=== PATIENT | male | born 1955 | race Caucasian/White ===

== ENCOUNTER 2017-07-24 10:00 | Outpatient (CLI) | payer BC ==
[2017-07-24] MEDS ORDERED: ISOVUE-370 76%-LOCM 1 ML ONE (11:38)
== END 2017-07-24 10:01 | disposition home or self-care (01) ==
LOC: BICCT 10:00
PROVIDERS: ATTEND Nurse Practitioner Family
DX: E87.1 Hypo-osmolality and hyponatremia (principal); E80.6 Other disorders of bilirubin metabolism; E78.2 Mixed hyperlipidemia; E83.52 Hypercalcemia; R97.20 Elevated prostate specific antigen [PSA]; R25.1 Tremor, unspecified; R74.0 Nonspecific elevation of levels of transaminase and lactic acid dehydrogenase [LDH]; I10 Essential (primary) hypertension; R73.09 Other abnormal glucose; J44.9 Chronic obstructive pulmonary disease, unspecified; I70.90 Unspecified atherosclerosis; K63.89 Other specified diseases of intestine; Z90.49 Acquired absence of other specified parts of digestive tract; Z86.19 Personal history of other infectious and parasitic diseases
CPT/HCPCS: 71260; 74177

== ENCOUNTER 2017-08-18 10:30 | Outpatient (CLI) | payer OTHER | END 2017-08-18 10:31 | disposition home or self-care (01) | LOC: BICRAD 10:30 | PROVIDERS: ATTEND Internal Medicine | DX: Z02.71 Encounter for disability determination (principal); M47.896 Other spondylosis, lumbar region; M41.86 Other forms of scoliosis, lumbar region | CPT/HCPCS: 72100 ==

== ENCOUNTER 2018-01-23 06:57 | Outpatient (CLI) | payer BC ==
--- NOTE | 2018-01-23 08:15 | ULT ---
HEPATIC DOPPLER ULTRSOUND: HISTORY: Abnormal LFTs. COMPARISON: None. TECHNIQUE: Vaughn scale, color flow, Doppler imaging, and spectral waveform analysis was performed of the liver. FINDINGS: Mild increased echogenicity of the liver may be due to hepatic steatosis or hepatocellular disease. Limited evaluation for hepatic masses and intrahepatic biliary dilatation. Right hepatic lobe measur es 13.4 cm. Gallbladder is surgically absent. Common bile duct diameter is 0.3 cm. The spleen has a normal echotexture measuring 9.8 cm in maximum dimension. Visualized IVC is unremarkable. Pancreas is obscured by bowel gas. HEPATIC DOPPLER: There is patency and normal direction of flow in the main portal vein, right portal vein, left portal vein, right hepatic vein, left hepatic lobe, middle hepatic vein, and the hepatic artery. Splenic v ein and artery are also patent. IMPRESSION: 1. Normal hepatic Doppler. 2. Mild increased echogenicity of the liver likely due to hepatic steatosis or hepatocellular diseas e. Correlation is made with a CT from 07/24/2017 favors hepatocellular disease. POS: [facility]
== END 2018-01-23 06:58 | disposition home or self-care (01) ==
LOC: BICULT 06:57
PROVIDERS: ATTEND Internal Medicine Gastroenterology
DX: Z12.11 Encounter for screening for malignant neoplasm of colon (principal); R94.5 Abnormal results of liver function studies; R93.2 Abnormal findings on diagnostic imaging of liver and biliary tract
CPT/HCPCS: 76705

== ENCOUNTER 2018-02-11 07:16 | Day surgery (SDC) | payer BC ==
[2018-02-11 07:31] LABS: Hemoglobin 14.3 g/dL (14.0-18.0); Mean Corpuscular HGB CONC 32.2 g/dL (32.0-36.0); Mean Corpuscular Volume 93.3 fL (78.0-98.0); Mean Platelet Volume 6.7 fL (7.4-10.4); Platelet Count 172 thou/uL (130-400); RBC Distribution Width 12.4 % (11.5-14.5); Red Blood Cell (RBC) Count 4.78 mill/uL (4.70-6.10); White Blood Cell (WBC) Count 5.4 thou/uL (4.8-10.8)
[2018-02-11 07:49] LABS: PTT 27.5 SEC (22.9-36.1); Prothrombin Time 13.4 SEC (12.0-14.7)
[2018-02-11 08:21] VITALS: BMI 22.8
[2018-02-11] MEDS ORDERED: Sodium Bicarbonate 2.5 MEQ/5 ML VIAL ONE (08:38)
[2018-02-11] MEDS ORDERED: Midazolam HCl 2 mg/2 ml Vial ONE (08:38)
[2018-02-11] MEDS ORDERED: Fentanyl 100 MCG/2 ML VIAL ONE (08:38)
[2018-02-11] MEDS ORDERED: Lidocaine 1% PF 5 ML VIAL ONE (08:38)
[2018-02-11 09:58] VITALS: BP 157/87; TEMP 98.1
--- NOTE | 2018-02-11 11:19 | ULT ---
ULTRASOUND GUIDED HEPATIC BIOPSY: INDICATIONS: Abnormal liver function enzymes. PROCEDURE IN DETAIL: Informed consent was obtained. The patient was escorted to the procedural suite and placed into a jones pine position. The ventral abdomen was prepped and draped in a standard, sterile fashion, and a wind ow approach to the substernal region, to the left hepatic lobe, was selected. Conscious sedation was provided by the radiology nurse, Luiza Posada, and the patient was monitored accordingly, in stabl e condition throughout the duration of the exam. Conscious sedation was provided for a period of 45 minutes. After a small skin incision was made, an 18 gauge biopsy needle was advanced to the leading edge of t he left hepatic lobe. A single core specimen was acquired, under real-time sonography, with imaging stored for documentation. There were no procedural complications. The needle was removed. The spec imen was placed in a sealed formalin container, which was sent to pathology for further analysis. Po st procedural imaging revealed no evidence of complication. The patient was subsequently monitored, in stable condition, in radiology holding, prior to discharge in stable condition with a family member. IMPRESSION: Technically successful ultrasound guided hepatic biopsy. Pathology results are pending. POS: [facility]
== END 2018-02-11 10:45 | disposition home or self-care (01) ==
LOC: ULT 07:16
PROVIDERS: ATTEND Internal Medicine Gastroenterology
PROC: 0FB23ZX Excision of Left Lobe Liver, Percutaneous Approach, Diagnostic (ICD-10-PCS; principal; 2018-02-11)
DX: K73.9 Chronic hepatitis, unspecified (principal); K74.0 Hepatic fibrosis; I10 Essential (primary) hypertension; Z79.899 Other long term (current) drug therapy
CPT/HCPCS: 36415; 47000; 76942; 85027; 85610; 85730; 88307; 88313; J2001; J2250; J3010

== ENCOUNTER 2018-04-02 11:46 | Outpatient (CLI) | payer BC ==
--- NOTE | 2018-04-02 16:10 | RAD ---
CERVICAL SPINE THREE VIEWS: 04/02/18 HISTORY: Neck pain. FINDINGS: There is 0.6 cm spondylolisthesis at the C4-5 level. Disc space narrowing is pronounced at the C5-6 l evel with 0.4 cm retrolisthesis. Prominent osteophytosis. Cervicothoracic junction is intact. No acut e fracture or dislocation. Calcification within the arterial structures. IMPRESSION: Prominent degenerative changes cervical spine with significant spondylolisthesis at the C4-5 level. Atherosclerosis. POS: [facility]
--- NOTE | 2018-04-02 16:12 | RAD ---
THREE VIEW RIGHT HAND: 04/02/18 INDICATION: Right hand pain, edema. FINDINGS: There is diffuse joint space narrowing, subchondral sclerosis and cyst formation and osteophytosis of the right hand with preferential involvement of the first and second rays. No acute osseous abnormal ity. IMPRESSION: Findings most consistent with osteoarthritis preferentially involving the first and second rays of th e right hand. No acute fracture. POS: [facility]
== END 2018-04-02 11:47 | disposition home or self-care (01) ==
LOC: BICRAD 11:46
PROVIDERS: ATTEND Nurse Practitioner Family
DX: M25.541 Pain in joints of right hand (principal); M47.812 Spondylosis without myelopathy or radiculopathy, cervical region; M43.12 Spondylolisthesis, cervical region; I70.90 Unspecified atherosclerosis
CPT/HCPCS: 72040

== ENCOUNTER 2019-09-01 16:46 | Inpatient (IN) | payer BC, MEDICARE ==
[2019-09-01] MEDS ORDERED: Lorazepam 2 MG/ML VIAL ONE ×3 (17:21→18:08)
[2019-09-01 17:54] LABS: #Basophils 0.1 thou/uL (0.0-0.2); #Lymphocytes 1.8 thou/uL (1.20-3.40); #Monocytes 0.9 thou/uL (0.11-0.59); #Neutrophils 8.7 thou/uL (1.40-6.50); %Basophils 0.6 % (0.0-1.0); %Eosinophils 0.1 % (0.0-10.0); %Lymphocytes 15.9 % (21.0-51.0); %Monocytes 7.4 % (0.0-10.0); Hemoglobin 14.6 g/dL (14.0-18.0); Mean Corpuscular HGB CONC 32.9 g/dL (32.0-36.0); Mean Corpuscular Hemoglobin 30.6 pg (27.0-31.0); Mean Platelet Volume 8.6 fL (7.4-10.4); Platelet Count 107 thou/uL (130-400); RBC Distribution Width 12.5 % (11.5-14.5); Red Blood Cell (RBC) Count 4.76 mill/uL (4.70-6.10); White Blood Cell (WBC) Count 11.5 thou/uL (4.8-10.8)
[2019-09-01 18:08] LABS: ALT (SGPT) 40 U/L (8-55); AST (SGOT) 70 U/L (5-34); Albumin 4.5 g/dL (3.4-4.8); Alkaline Phosphatase 75 U/L (40-110); Anion Gap 21 mmol/L (10-20); BUN (Urea Nitrogen) 30 mg/dL (8.4-25.7); Bilirubin, Total 5.4 mg/dL (0.2-1.2); CK (CPK) 1794 U/L (30-200); Calc. Creatinine Clearance 0 mL/min (70-130); Calcium 10.5 mg/dL (7.8-10.44); Carbon Dioxide 24 mmol/L (23-31); Chloride 88 mmol/L (98-107); Estimated GFR-MDRD 58; Globulin 3.1 g/dL (2.4-3.5); Glucose 105 mg/dL (80-115); Magnesium 1.2 mg/dL (1.6-2.6); Potassium 3.2 mmol/L (3.5-5.1); Protein, Total 7.6 g/dL (5.8-8.1); Sodium 130 mmol/L (136-145)
[2019-09-01] MEDS ORDERED: Magnesium 2 GM/50 ML BAG (IN WATER) ONE (18:16)
--- NOTE | 2019-09-01 18:32 | RAD ---
RIGHT HIP THREE VIEWS: 09/01/19 HISTORY: Hip pain. Some motion artifact present. There is no signs of fracture or dislocation. IMPRESSION: No evidence of acute injury. POS: [facility]
--- NOTE | 2019-09-01 18:33 | RAD ---
PORTABLE CHEST: 09/01/19 HISTORY: Altered mental status. Syncope, seizure. COMPARISON: 01/09/14 study. Heart size and mediastinum are within normal limits. The lungs are clear of any infiltrative process. IMPRESSION: No active intrathoracic disease. POS: [facility]
[2019-09-01] MEDS ORDERED: Multivitamins, Adult 10 ML, Thiamine HCl 100 MG, Folic Acid 1 MG in Dextrose 5 %-0.45 %... IV ONE (19:00)
--- NOTE | 2019-09-01 19:43 | CT ---
CT OF BRAIN PERFORMED WITHOUT CONTRAST ENHANCEMENT: 09/01/19 HISTORY: Falls with seizure-like activity. COMPARISON: A 01/09/14 exam. There is generalized ventricular and sulcal prominence. There is decreased attenuation of the periven tricular white suggesting some chronic white matter change. There are no signs of intracerebral hemo rrhage or extra-axial fluid collections. Mastoid air cells are clear. There is mucosal disease in bot h maxillary sinuses. IMPRESSION: No acute intracranial abnormalities. POS: [facility]
--- NOTE | 2019-09-01 20:05 | CT ---
CT OF CERVICAL SPINE PERFORMED WITHOUT CONTRAST ENHANCEMENT: 09/01/19 HISTORY: Neck pain status post fall. There are marked arthritic changes of the spine. There is severe degenerative changes at the C3-4 and C5-6 levels. There is an anterolisthesis of approximately 4 mm of C4 on C5 and a similar retrolisth esis of C5 on C6. The facets show marked degenerative change. At the C3-4 level, there is moderately severe bilateral foraminal stenosis. Marked bilateral foraminal narrowing at C4-5 and C5-6. The galvan es at C5-6 are more pronounced on the left side. Posterior osteophytic change at this level causes a mild degree of canal narrowing. There is no CT evidence for fracture. IMPRESSION: No CT evidence of fracture of the cervical spine. POS: [facility]
[2019-09-01 20:38] LABS: Lactic Acid 1.5 mmol/L (0.5-2.2)
[2019-09-01] MEDS ORDERED: Magnesium Sulfate 3 GM in Sodium Chloride 0.9% 100 ML IVPB SCH ×2 (21:00→23:59)
[2019-09-01 23:06] VITALS: BMI 21.6
[2019-09-01] MEDS: Lorazepam 2 MG/ML VIAL SLOW IVP PRN (23:23)
[2019-09-01] MEDS: Sodium Chloride 0.9% 1,000 ML IV SCH (23:30)
[2019-09-02] MEDS: Lorazepam 2 MG/ML VIAL SLOW IVP PRN ×4 (00:07→17:10)
[2019-09-02] MEDS: Potassium Chloride 10 MEQ in Premix Bag 1 BAG IVPB SCH ×3 (00:18→03:19)
--- NOTE | 2019-09-02 01:00 | HP ---
CHIEF COMPLAINT: Fall and ? seizures. HISTORY OF PRESENT ILLNESS: Mr. Richmond is a 64-year-old male who was brought to the emergency room department by EMS after falls, which has been worsening as well as seizure-like activity. As per records, patient has been intermittently awake and becomes oriented x1. He initially complained of right hip pain as well as headache. He also complained of a recent hyphema to the right eye, which he woke up with. He denied any visual problems. The patient was placed in a C-collar by EMS. The patient has had tremors to the upper and lower extremities. 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 He is currently on blood pressure medications and cholesterol medications. He is not on any seizure medications. In the emergency room, patient received a total 4 mg of Ativan. Currently, the patient is sedated, unable to give any history. PAST MEDICAL HISTORY: 1. Hypertension. 2. Hyperlipidemia. 3. Seizures. 4. Alcohol dependence. PAST SURGICAL HISTORY: Cholecystectomy. SOCIAL HISTORY: He drinks alcohol every day, more than 5 drinks a day. No smoking history. FAMILY HISTORY: Reviewed and noncontributory. HOME MEDICATIONS: Please see home medication reconciliation form for updated medications. ALLERGIES: NO KNOWN ALLERGIES. REVIEW OF SYSTEMS: Unable to obtain. Currently, patient is sedated. PHYSICAL EXAMINATION: GENERAL: The patient is awake. HEENT: Has some subconjunctival hemorrhage. NECK: In C-collar. CHEST: Fair bilateral air entry. HEART: S1, S2. Regular. ABDOMEN: Soft. Bowel sounds present. NEUROLOGIC: The patient is sedated, received Ativan. PSYCHIATRIC: Unable to assess. EXTREMITIES: Multiple skin tears and contusions scattered all over the body. VITAL SIGNS: Blood pressure 145/80, respiratory rate is 20, oxygen saturation is 100% on room air, temperature 98.8. LABORATORY DATA: CT of the brain, no acute findings. Chest x-ray, no acute findings. Hip x-ray, no acute findings. Alcohol level less than 10. Magnesium was low at 1.2. Sodium is low at 130. Anion gap is elevated at 21. CPK is elevated at 1794. Bilirubin is elevated at 5.4. Lactic acid elevated at 3. Platelets low at 107. ASSESSMENT AND PLAN: 1. Acute encephalopathy? postictal. 2. Fall, recurrent. 3. Alcohol dependence with withdrawal. 4. Hypomagnesemia. 5. Hypokalemia. 6. Hyponatremia. 7. Lactic acidosis. 8. Rhabdomyolysis. 9. Seizures. PLAN: 1. Admit to IMCU. 2. Frequent neuro checks. 3. Fall precautions. 4. Seizure precautions. 5. Use benzodiazepine as needed for alcohol withdrawal/seizures. 6. Replace magnesium. 7. Replace potassium. 8. IV fluids. 9. Monitor kidney function and urine output. 10. Keep patient n.p.o. for now, reassess in a.m. 11. Reconcile home medications. 12. DVT prophylaxis as appropriate. 13. Expected length of stay, 2 midnights or more. Job ID: [id number]
[2019-09-02] MEDS: Sodium Chloride 0.9% 1,000 ML IV SCH ×3 (07:55→23:55)
[2019-09-02] MEDS ORDERED: Potassium Chloride 20 MEQ TAB PO SCH (10:30)
[2019-09-02 11:27] LABS: Band 14 % (5-11); Hemoglobin 12.5 g/dL (14.0-18.0); Lymphocytes 9 % (21-51); MDiff Complete? YES; Mean Corpuscular HGB CONC 32.8 g/dL (32.0-36.0); Mean Corpuscular Hemoglobin 30.8 pg (27.0-31.0); Mean Platelet Volume 8.3 fL (7.4-10.4); Monocytes 7 % (0-10); Neutrophil 53 % (42-75); Platelet Count 85 thou/uL (130-400); Platelet Morphology Comment Appears Decreased; Polychromasia SLIGHT = 2-3 cells (100X) (0-2/hpf); RBC Distribution Width 12.5 % (11.5-14.5); Reactive Lymphocytes 17 % (0-10); Red Blood Cell (RBC) Count 4.05 mill/uL (4.70-6.10); White Blood Cell (WBC) Count 5.1 thou/uL (4.8-10.8)
[2019-09-02 11:39] LABS: Anion Gap 12 mmol/L (10-20); BUN (Urea Nitrogen) 16 mg/dL (8.4-25.7); Calc. Creatinine Clearance 90 mL/min (70-130); Calcium 8.2 mg/dL (7.8-10.44); Carbon Dioxide 28 mmol/L (23-31); Chloride 95 mmol/L (98-107); Estimated GFR-MDRD Greater than 90; Glucose 87 mg/dL (80-115); Potassium 2.6 mmol/L (3.5-5.1); Sodium 132 mmol/L (136-145)
[2019-09-02] MEDS ORDERED: Thiamine HCl 200 MG/2 ML VIAL IM SCH (12:15)
[2019-09-02] MEDS ORDERED: Diazepam 5 MG TAB PO SCH (12:15)
[2019-09-02] MEDS ORDERED: Diazepam 5 MG TAB PO PRN (12:15)
[2019-09-02] MEDS ORDERED: Magnesium 2 GM/50 ML 2 GM in Premix Bag 1 BAG IVPB PRN (12:22)
[2019-09-02] MEDS ORDERED: Magnesium Oxide 400 MG TAB PO PRN ×2 (12:22)
[2019-09-02] MEDS ORDERED: Potassium Phosphate 9 MMOL in Sodium Chloride 0.9% 100 ML IVPB PRN (12:22)
[2019-09-02] MEDS ORDERED: PHOS-NAK 1 PKT PACK PO PRN ×2 (12:22)
[2019-09-02] MEDS ORDERED: Potassium Chloride 40 MEQ in Sodium Chloride 0.9% 250 ML 250 ML IVPB PRN (12:22)
[2019-09-02] MEDS ORDERED: CCU ELECTROLYTE REPLACEMENT PROTOCOL FS PRN (12:22)
[2019-09-02] MEDS ORDERED: Potassium Chloride 20 MEQ TAB PO PRN (12:22)
[2019-09-02] MEDS ORDERED: Potassium Phosphate 12 MMOL in Sodium Chloride 0.9% 250 ML 250 ML IV PRN (12:22)
[2019-09-02] MEDS ORDERED: Potassium Phosphate 15 MMOL in Sodium Chloride 0.9% 250 ML 250 ML IV PRN (12:22)
[2019-09-02] MEDS ORDERED: levETIRAcetam 2,000 MG in Sodium Chloride 0.9% 100 ML IVPB SCH (12:30)
--- NOTE | 2019-09-02 13:43 | CON ---
NEUROLOGY CONSULTATION DATE OF CONSULTATION: 09/02/2019 REASON FOR CONSULTATION: Seizures. HISTORY OF PRESENT ILLNESS: Mr. Richmond is a 64-year-old male who is consulted for seizure activity. The patient is extremely lethargic and the history is obtained from the patient's . Per , he was admitted to the hospital with West Nile virus 2011 and then a year after he had his first seizure, which was characterized by staring off in space with stiffening. According to the , the seizures were sporadic, so he never took any medicines. This year he had 5 episodes in total, which are characterized by confusion and not feeling well followed by stiffening and confusion. He had one in his doctor's office a couple of months ago and neurology workup was suggested. Per he had 5 seizures this year. Yesterday he was not feeling well and then he fell down and had a seizure. He was brought to the emergency room by the EMS after repeated falls and the noted seizure-like activity. Per he also had headache and tremors of the upper and lower extremities. He does have a history of alcohol abuse and according to the , he drinks more than 5 beers a day. In the emergency room he received 4 mg of Ativan and transferred to CCU for further monitoring and management of seizures. REVIEW OF SYSTEMS: Per positive for falls, headache and seizures. PAST MEDICAL HISTORY: Hypertension, hyperlipidemia, seizures, alcohol abuse. PAST SURGICAL HISTORY: Status post cholecystectomy. SOCIAL HISTORY: , lives with his . Drinks more than 5 drinks a day. No smoking or illegal drug use. FAMILY HISTORY: No family history of epilepsy. HOME MEDICATION: He does not take any seizure medications at home. ALLERGIES: NO KNOWN DRUG ALLERGIES. PHYSICAL EXAMINATION: HEENT: Blood pressure 140/90, pulse 80, respiratory rate 18, temperature 98. CVS: Regular rate and rhythm. CHEST: Clear. ABDOMEN: Soft. NECK: No carotid bruit. NEUROLOGICAL: Mental status: The patient is extremely somnolent and sedated. He does not open eyes or follow commands. Cranial nerves; pupils equal and reactive to light. Face symmetric. Tongue midline. Corneals positive. Cough positive. Motor, muscle tone and bulk are normal. Moving all 4 extremities equally and symmetrically. Sensory: Withdraws to nailbed pressure bilaterally. Reflexes symmetric bilaterally. Gait deferred due to patient's safety reasons. DATA REVIEWED: I reviewed the CT scan, which did not reveal any acute intracranial pathology. Chest x-ray was unremarkable. Alcohol level less than 10. He does have a metabolic electrolyte abnormalities including hypomagnesemia 1.2, hyponatremia 130, anion gap elevated at 21, CPKs 17.4 and hypokalemia and platelets of 107. ASSESSMENT AND PLAN: 1. Mr. Jose Richmond is consulted by Neurology for altered mental status and seizure like activity. He does have history of seizures and never been treated with an anticonvulsant. There is also a history of alcohol dependence. Load with Keppra 2 g IV now. 2. Start on Keppra maintenance dose 750 mg IV q.12 1st dose tonight. 3. Observe seizure precautions. 4. Ativan 2 mg IV for seizure greater than 2 minutes. 5. Observe seizure precautions. 6. Observe fall precautions. 7. [facility] protocol for alcohol for alcohol withdrawal. 8. Correct electrolyte abnormalities. 9.Continue home medications. Continue medical management per primary team. 10.Electroencephalogram ongoing. We will follow up on the results. 11.Recommend MRI of the brain to rule out intracranial lesion. We will continue to follow. Thank you for the consult. Plan discussed in detail with the and the nursing staff. Job ID: [id number] [facility]
--- NOTE | 2019-09-02 16:05 | EEG ---
Referring Physician: Aly AMANDA EEG # [id number] TEST TYPE: EXTENDED CONTINUOUS VIDEO EEG RECORDING REPORT: This EEG was performed using 24 channel [employer] video digital EEG machine with 24 disc electrodes. This was an extended 2 hour 6 minutes of inpatient video EEG recording. Digital analysis of the EEG was done for spike and seizure detection which revealed no abnormalities. BACKGROUND: The posterior background rhythm was not observed. Low amplitude EEG with excessive beta activity seen in the background. HYPERVENTILATION: Not performed. PHOTIC STIMULATION: No significant response seen with photic stimulation. SLEEP: Drowsiness and sleep are observed. EEG DIAGNOSIS: 1.) Intermittent irregular theta activity with superimposed beta. 2.) Absence of posterior background rhythm. CLINICAL INTERPRETATION: THIS EEG IS CONSISTENT WITH MODERATE GENERALIZED NONSPECIFIC CEREBRAL DYSFUNCTION. NO ICTAL OR INTERICTAL EPILEPTIFORM ABNORMALITIES SEEN DURING THE RECORDING. Maintenance Supervisor 2Nd Shift: [employer]: EEG.MARTHA SALAS
[2019-09-02] MEDS ORDERED: Haloperidol Lactate 5 MG/ML VIAL SLOW IVP PRN (17:35)
--- NOTE | 2019-09-02 17:39 | PDOC.HOSPP ---
- Subjective Encounter Date: 09/02/19 Subjective: The patient is confused and agitated. Multiple seizure like activities has been reported. - Objective Vital Signs & Weight: Vital Signs (12 hours) Temp Pulse Ox 09/02/19 15:56 96.0 F L 09/02/19 11:59 97.7 F 09/02/19 08:00 98 09/02/19 07:17 97.5 F L Weight Admit Weight 142 lb 4 oz Weight 142 lb 4 oz Most Recent Monitor Data Heart Rate from ECG 71 NIBP 166/88 NIBP BP-Mean 114 Respiration from ECG 15 SpO2 96 I&O: 09/01/19 09/02/19 09/03/19 06:59 06:59 06:59 Intake Total 1300 Output Total 375 Balance 925 Result Diagrams: 09/02/19 10:37 09/02/19 10:37 Hospitalist ROS - Medication Medications: Active Medications Generic Name Dose Route Start Last Admin Trade Name Freq PRN Reason Stop Dose Admin Sodium Chloride 1,000 mls @ 125 mls/hr 09/01/19 20:45 09/02/19 07:55 Normal Saline 0.9% IV 1,000 mls .Q8H IONA Administration Potassium Chloride 40 meq/ 270 mls @ 135 mls/hr 09/02/19 12:22 09/02/19 13:08 Sodium Chloride IVPB 270 mls ASDIR PRN Administration FOR SERUM K+ 2.5 - 3.5 Lorazepam 2 mg 09/01/19 20:26 09/02/19 17:10 Ativan SLOW IVP 2 mg Q15MIN PRN Administration Seizures Sodium Chloride 10 ml 09/01/19 21:00 09/02/19 07:55 Flush - Normal Saline IVF 10 ml Q12HR IONA Administration - Exam General Appearance: awake alert ENT: normocephalic atraumatic Neck: supple, no JVD Heart: RRR Respiratory: normal chest expansion, no tachypnea Gastrointestinal: soft, non-tender Extremities: no cyanosis Neurological: cranial nerve grossly intact, no weakness Hosp A/P (1) Seizures Code(s): R56.9 - UNSPECIFIED CONVULSIONS Status: Acute (2) Hypokalemia Code(s): E87.6 - HYPOKALEMIA Status: Acute (3) Alcohol withdrawal Code(s): F10.239 - ALCOHOL DEPENDENCE WITH WITHDRAWAL, UNSPECIFIED Status: Acute (4) Agitation Status: Acute (5) HTN (hypertension) Code(s): I10 - ESSENTIAL (PRIMARY) HYPERTENSION Status: Acute (6) Hypomagnesemia Code(s): E83.42 - HYPOMAGNESEMIA Status: Acute (7) Hyponatremia Code(s): E87.1 - HYPO-OSMOLALITY AND HYPONATREMIA Status: Acute - Plan Keppra started for suspected seizures. Haldol for combativeness and agitation. ASE alcohol withdrwal protocol with Ativan PRN. Replace electrolytes per ICU protocol.
[2019-09-02 19:47] LABS: Potassium 2.8 mmol/L (3.5-5.1)
[2019-09-02] MEDS: Potassium Chloride 40 MEQ in Premix Bag 1 BAG IVPB PRN (20:15)
[2019-09-02] MEDS ORDERED: Prevnar 13-Val Conj/PF 0.5 ML SYRINGE IM ONE (21:00)
[2019-09-02] MEDS ORDERED: Multivitamins, Adult 10 ML, Folic Acid 1 MG, Thiamine HCl 100 MG in Dextrose 5 %-0.45 %... IV SCH (21:00)
[2019-09-03] MEDS ORDERED: Diazepam 5 MG TAB PO PRN (04:00)
[2019-09-03 04:21] LABS: Band 8 % (5-11); Hemoglobin 12.2 g/dL (14.0-18.0); Lymphocytes 26 % (21-51); MDiff Complete? YES; Mean Corpuscular HGB CONC 32.5 g/dL (32.0-36.0); Mean Corpuscular Hemoglobin 30.5 pg (27.0-31.0); Mean Platelet Volume 8.6 fL (7.4-10.4); Monocytes 9 % (0-10); Neutrophil 57 % (42-75); Platelet Count 75 thou/uL (130-400); Platelet Morphology Comment Appears Decreased; RBC Distribution Width 12.4 % (11.5-14.5); Red Blood Cell (RBC) Count 3.99 mill/uL (4.70-6.10); White Blood Cell (WBC) Count 4.4 thou/uL (4.8-10.8)
[2019-09-03 04:35] LABS: Anion Gap 12 mmol/L (10-20); BUN (Urea Nitrogen) 7 mg/dL (8.4-25.7); Calc. Creatinine Clearance 130 mL/min (70-130); Calcium 6.9 mg/dL (7.8-10.44); Carbon Dioxide 23 mmol/L (23-31); Chloride 99 mmol/L (98-107); Estimated GFR-MDRD Greater than 90; Glucose 98 mg/dL (80-115); Potassium 2.6 mmol/L (3.5-5.1); Sodium 131 mmol/L (136-145)
[2019-09-03] MEDS: Potassium Chloride 40 MEQ in Premix Bag 1 BAG IVPB PRN (04:46)
[2019-09-03] MEDS ORDERED: Magnesium Oxide 400 MG TAB PO SCH (09:00)
[2019-09-03] MEDS: Folic Acid 1 MG TAB PO SCH (09:32)
[2019-09-03] MEDS: Multivitamin W/ Minerals 1 TAB PO SCH (09:32)
[2019-09-03] MEDS: Sodium Chloride 0.9% 1,000 ML IV SCH (09:32)
[2019-09-03] MEDS: Thiamine 100 MG TAB PO SCH (09:32)
[2019-09-03 09:39] LABS: Potassium 1.7 mmol/L (3.5-5.1)
[2019-09-03 10:17] LABS: Phosphorus 1.3 mg/dL (2.3-4.7)
[2019-09-03] MEDS ORDERED: DC Electrolyte Protocol FS ONE (10:17)
[2019-09-03] MEDS ORDERED: Lorazepam 1 MG TAB PO PRN (10:21)
[2019-09-03] MEDS ORDERED: Potassium Phosphate 30 MMOL, Admixture Fee 1 EACH in Sodium Chloride 0.9% 500 ML IVPB SCH (10:30)
[2019-09-03] MEDS: NS 0.9% w/ 20 MEQ KCL 1,000 ML/1,000 ML BAG IV SCH ×2 (11:10→20:00)
--- NOTE | 2019-09-03 11:44 | PDOC.HOSPP ---
- Subjective Encounter Date: 09/02/19 Subjective: NEUROLOGY PROGRESS NOTE Patient is alert, awake and following commands appropriately. - Objective Vital Signs & Weight: Vital Signs (12 hours) Temp BP Pulse Ox 09/03/19 11:11 96.6 F L 09/03/19 07:50 100 09/03/19 07:31 151/99 H 09/03/19 07:23 96.4 F L 09/03/19 04:00 97.2 F L 09/03/19 00:00 97.7 F 158/89 H Weight Admit Weight 142 lb 4 oz Weight 142 lb 4 oz Most Recent Monitor Data Heart Rate from ECG 60 NIBP 174/90 NIBP BP-Mean 118 Respiration from ECG 11 SpO2 98 I&O: 09/02/19 09/03/19 09/04/19 06:59 06:59 06:59 Intake Total 1300 3984 Output Total 375 1325 325 Balance 925 2659 325 Result Diagrams: 09/03/19 03:09 09/03/19 10:02 Radiology Reviewed by me: Yes EKG Reviewed by me: Yes Hospitalist ROS - Review of Systems Constitutional: denies: fever, chills, sweats, weakness, malaise, other Eyes: denies: pain, vision change, conjunctivae inflammation, eyelid inflammation, redness, other ENT: denies: ear pain, ear discharge, nose pain, nose discharge, nose congestion , mouth pain, mouth swelling, throat pain, throat swelling, other Respiratory: denies: cough, dry, shortness of breath, hemoptysis, SOB with excertion, pleuritic pain, sputum, wheezing, other Gastrointestinal: denies: nausea, vomiting, abdominal pain, diarrhea, constipation, melena, hematochezia, other Genitourinary: denies: dysuria, frequency, incontinence, hematuria, retention, other Musculoskeletal: denies: neck pain, shoulder pain, arm pain, back pain, hand pain, leg pain, foot pain, other Skin: denies: rash, lesions, osiel, bruising, other - Medication Medications: Active Medications Generic Name Dose Route Start Last Admin Trade Name Freq PRN Reason Stop Dose Admin Folic Acid 1 mg 09/03/19 09:00 09/03/19 09:32 Folvite PO 1 mg DAILY IONA Administration Levetiracetam 750 mg/ Sodium 107.5 mls @ 215 mls/hr 09/02/19 21:00 09/03/19 09:35 Chloride IVPB 107.5 mls BID IONA Administration Potassium Phosphate 30 mmol/ 510 mls @ 83.3 mls/hr 09/03/19 10:30 09/03/19 11 :10 Miscellaneous Medication 1 IVPB 09/03/19 17:00 510 mls each/ Sodium Chloride NOW IONA Administration Potassium Chloride/Sodium Chloride 1,000 ml in 1,000 mls @ 125 mls/hr 10:30 09/03/19 11:10 Ns 0.9% W/ 20 Meq Kcl IV 1,000 mls .Q8H IONA Administration Iron/Minerals/Multivitamins 1 tab 09/03/19 09:00 09/03/19 09:32 Theragran M PO 1 tab DAILY IONA Administration Lorazepam 2 mg 09/01/19 20:26 09/02/19 17:10 Ativan SLOW IVP 2 mg Q15MIN PRN Administration Seizures Sodium Chloride 10 ml 09/01/19 21:00 09/03/19 09:32 Flush - Normal Saline IVF 10 ml Q12HR IONA Administration Thiamine HCl 100 mg 09/03/19 09:00 09/03/19 09:32 Thiamine PO 100 mg DAILY IONA Administration - Exam General Appearance: awake alert Eye: PERRL, anicteric sclera ENT: normocephalic atraumatic, no oropharyngeal lesions, moist mucosa Neck: supple Heart: RRR Respiratory: CTAB Gastrointestinal: soft Extremities: no cyanosis, no clubbing, no edema Skin: normal turgor, no lesions, no rashes Neurological: cranial nerve grossly intact, normal sensation to touch, no weakness, no focal deficits, no new deficit Musculoskeletal: normal tone, normal strength, no muscle wasting Psychiatric: normal affect, normal behavior, A&O x 3 Hosp A/P (1) Seizures Code(s): R56.9 - UNSPECIFIED CONVULSIONS Status: Acute (2) Alcohol withdrawal Code(s): F10.239 - ALCOHOL DEPENDENCE WITH WITHDRAWAL, UNSPECIFIED Status: Acute (3) HTN (hypertension) Code(s): I10 - ESSENTIAL (PRIMARY) HYPERTENSION Status: Acute (4) Hypokalemia Code(s): E87.6 - HYPOKALEMIA Status: Acute (5) Hypomagnesemia Code(s): E83.42 - HYPOMAGNESEMIA Status: Acute (6) Hyponatremia Code(s): E87.1 - HYPO-OSMOLALITY AND HYPONATREMIA Status: Acute - Plan plan discussed w/ family, PT/OT, speech therapy 64 year old with seizures and alcohol dependence. No documented seizures since initiation of Keppra. Continue keppra 750 mg IV q12. Can switch to PO once cleared by speech. Ativan 2 mg IV for seizures greater than 2 minutes. Observe seizure precautions including driving restrictions. EEG reviewed and is negative for underlying seizure activity. Awaiting MRI brain to evaluate for seizure focus. Neurochecks every hours [facility] protocol to prevent alcohol withdrawal. Correct electrolyte abnormalities Continue home medications. Continue medical management per primary team. Plan discussed with patient , and the nursing staff.
[2019-09-03] MEDS: Potassium Chloride 20 MEQ TAB PO SCH ×2 (13:35→17:55)
--- NOTE | 2019-09-03 15:08 | MRI ---
BRAIN MRI WITHOUT CONTRAST: DATE: 09/03/2019. COMPARISON: None. HISTORY: Seizure activity, prior history of West Nile virus. TECHNIQUE: Multiplanar, multisequence MR imaging of the brain is provided without contrast media. FINDINGS: There is moderate degenerative change at the atlantoaxial interspace. There is mild mucosal thickening involving the maxillary sinuses and there are a few opacified mastoi d air cells bilaterally. The axial gradient echo imaging demonstrates no evidence for intracranial hemorrhage. There is prominent diffuse cerebral volume loss with associated prominence of the CSF-containing spac es. There is periventricular T2 and FLAIR hyperintensity suggesting a degree of small-vessel disease . The diffusion weighted imaging demonstrates no evidence for acute infarction. There is a small posterior fossa arachnoid cyst posteromedially on the right measuring in the 2 cm ra nge. Arterial flow voids at the axial level of the skull base appear grossly unremarkable on the T2 weight ed imaging. IMPRESSION: Cerebral volume loss and small-vessel disease. No intracranial hemorrhage or evidence of acute infar ction. POS: [facility]
--- NOTE | 2019-09-03 18:11 | PDOC.HOSPP ---
- Subjective Encounter Date: 09/03/19 Encounter Time: 09:00 Subjective: Patient seen and examined for encephalopathy. Mentation improving. No new complaints. No overnight events - Objective Vital Signs & Weight: Vital Signs (12 hours) Temp Pulse Pulse BP BP BP Pulse Ox 09/03/19 16:00 156/78 H 09/03/19 15:20 96.0 F L 09/03/19 13:36 65 87 184/96 H 146/103 H 09/03/19 12:00 160/96 H 09/03/19 11:11 96.6 F L 09/03/19 07:50 100 09/03/19 07:31 151/99 H 09/03/19 07:23 96.4 F L Weight Admit Weight 142 lb 4 oz Weight 142 lb 4 oz Most Recent Monitor Data Heart Rate from ECG 69 NIBP 156/78 NIBP BP-Mean 104 Respiration from ECG 18 SpO2 100 I&O: 09/02/19 09/03/19 09/04/19 06:59 06:59 06:59 Intake Total 1300 3984 Output Total 375 1325 325 Balance 925 2659 -325 Result Diagrams: 09/03/19 03:09 09/03/19 17:25 Additional Labs: Laboratory Tests 09/03/19 09/03/19 09/03/19 03:09 03:09 17:25 Potassium 3.0 L Phosphorus 1.3 L Magnesium 1.5 L EKG Reviewed by me: Yes (Tele SR) Hospitalist ROS - Review of Systems Respiratory: denies: cough, dry, shortness of breath, hemoptysis, SOB with excertion, pleuritic pain, sputum, wheezing, other Cardiovascular: denies: chest pain, palpitations, orthopnea, paroxysmal noc. dyspnea, edema, light headedness, other - Medication Medications: Active Medications Generic Name Dose Route Start Last Admin Trade Name Freq PRN Reason Stop Dose Admin Folic Acid 1 mg 09/03/19 09:00 09/03/19 09:32 Folvite PO 1 mg DAILY IONA Administration Levetiracetam 750 mg/ Sodium 107.5 mls @ 215 mls/hr 09/02/19 21:00 09/03/19 09:35 Chloride IVPB 107.5 mls BID IONA Administration Potassium Chloride/Sodium Chloride 1,000 ml in 1,000 mls @ 125 mls/hr 10:30 09/03/19 11:10 Ns 0.9% W/ 20 Meq Kcl IV 1,000 mls .Q8H IONA Administration Iron/Minerals/Multivitamins 1 tab 09/03/19 09:00 09/03/19 09:32 Theragran M PO 1 tab DAILY IONA Administration Lorazepam 2 mg 09/01/19 20:26 09/02/19 17:10 Ativan SLOW IVP 2 mg Q15MIN PRN Administration Seizures Potassium Chloride 20 meq 09/03/19 12:00 09/03/19 17:55 K-Dur PO 20 meq TID-WM IONA Administration Sodium Chloride 10 ml 09/01/19 21:00 09/03/19 09:32 Flush - Normal Saline IVF 10 ml Q12HR IONA Administration Thiamine HCl 100 mg 09/03/19 09:00 09/03/19 09:32 Thiamine PO 100 mg DAILY IONA Administration - Exam General Appearance: NAD Neck: supple, no JVD Heart: RRR, no gallops, no rubs, normal peripheral pulses Respiratory: no wheezes, no rales, no ronchi, normal chest expansion Gastrointestinal: soft, non-tender, non-distended, normal bowel sounds Extremities: no cyanosis, no clubbing, no edema Neurological: no new deficit Psychiatric: normal affect, A&O x 3 Hosp A/P - Plan DVT proph w/SCDs Toxic Metabolic encephalopathy due to ETOH withdrawal Seizures due to above Hypokalemia/Hypomagnesemia/Hyponatremia Rhabdomyolysis Thrombocytopenia HTN HLD BPH h/o West Nile Encephalitis h/o Essential tremors h/o Neuropathy h/o recurrent falls PLAN: Cont Keppra Neuro input appreciated Replace electrolytes Cont MVM and alcohol withdrawal protocol Resume Inderal AM labs including CK No Lovenox due to thrombocytopenia
[2019-09-03] MEDS: Propranolol HCl 20 MG TAB PO SCH (21:21)
[2019-09-03] MEDS: PHOS-NAK 1 PKT PACK PO SCH (21:21)
[2019-09-04] MEDS: cloNIDine 0.1 MG TAB PO PRN (00:25)
[2019-09-04] MEDS: NS 0.9% w/ 20 MEQ KCL 1,000 ML/1,000 ML BAG IV SCH ×2 (01:32→11:51)
[2019-09-04 03:48] LABS: Band 4 % (5-11); Hemoglobin 13.1 g/dL (14.0-18.0); Hypochromia SLIGHT = 6-15 cells (100X) (0-5/hpf); Lymphocytes 16 % (21-51); MDiff Complete? YES; Mean Corpuscular HGB CONC 33.5 g/dL (32.0-36.0); Mean Corpuscular Hemoglobin 31.2 pg (27.0-31.0); Mean Corpuscular Volume 93.2 fL (78.0-98.0); Mean Platelet Volume 8.5 fL (7.4-10.4); Monocytes 19 % (0-10); Neutrophil 61 % (42-75); Platelet Count 98 thou/uL (130-400); Platelet Morphology Comment Appears Decreased; RBC Distribution Width 12.5 % (11.5-14.5); Red Blood Cell (RBC) Count 4.19 mill/uL (4.70-6.10); White Blood Cell (WBC) Count 4.4 thou/uL (4.8-10.8)
[2019-09-04 04:05] LABS: Anion Gap 11 mmol/L (10-20); BUN (Urea Nitrogen) 7 mg/dL (8.4-25.7); Calc. Creatinine Clearance 104 mL/min (70-130); Calcium 8.1 mg/dL (7.8-10.44); Carbon Dioxide 28 mmol/L (23-31); Chloride 96 mmol/L (98-107); Estimated GFR-MDRD Greater than 90; Glucose 99 mg/dL (80-115); Magnesium 1.5 mg/dL (1.6-2.6); Potassium 3.8 mmol/L (3.5-5.1); Sodium 131 mmol/L (136-145)
[2019-09-04 04:07] LABS: CK (CPK) 884 U/L (30-200); Phosphorus 1.6 mg/dL (2.3-4.7)
[2019-09-04] MEDS ORDERED: Potassium Phosphate 30 MMOL in Sodium Chloride 0.9% 250 ML 250 ML IVPB SCH (04:30)
[2019-09-04] MEDS ORDERED: Magnesium Sulfate 4 GM, Admixture Fee 1 EACH in Sodium Chloride 0.9% 250 ML 250 ML IVPB SCH (07:45)
[2019-09-04] MEDS: PHOS-NAK 1 PKT PACK PO SCH ×3 (09:50→21:39)
[2019-09-04] MEDS: Multivitamin W/ Minerals 1 TAB PO SCH (09:50)
[2019-09-04] MEDS: Propranolol HCl 20 MG TAB PO SCH ×3 (09:50→21:38)
[2019-09-04] MEDS: Folic Acid 1 MG TAB PO SCH (09:50)
[2019-09-04] MEDS: Thiamine 100 MG TAB PO SCH (09:50)
[2019-09-04] MEDS: Potassium Chloride 20 MEQ TAB PO SCH ×2 (09:50→16:22)
[2019-09-04] MEDS: Magnesium Chloride 64 MG TAB PO SCH ×2 (09:53→21:44)
--- NOTE | 2019-09-04 10:36 | PDOC.HOSPP ---
- Subjective Encounter Date: 09/04/19 Encounter Time: 10:00 Subjective: Patient seen and examined for Seizure. Mentation improving. No new complaints. No overnight events - Objective Vital Signs & Weight: Vital Signs (12 hours) Temp BP Pulse Ox 09/04/19 07:41 99 09/04/19 07:40 153/96 H 09/04/19 06:59 96.2 F L 09/04/19 00:25 156/78 H 09/03/19 23:03 97.2 F L Weight Admit Weight 142 lb 4 oz Weight 142 lb 4 oz Most Recent Monitor Data Heart Rate from ECG 61 NIBP 163/90 NIBP BP-Mean 114 Respiration from ECG 14 SpO2 100 I&O: 09/03/19 09/04/19 09/05/19 06:59 06:59 06:59 Intake Total 3984 3690 Output Total 1325 2550 400 Balance 2659 1140 -400 Result Diagrams: 09/04/19 02:52 09/04/19 02:52 Additional Labs: Laboratory Tests 09/01/19 09/04/19 09/04/19 17:40 02:52 02:52 Phosphorus 1.6 L Magnesium 1.5 L Creatine Kinase 1794 H EKG Reviewed by me: Yes (Tele SR) Hospitalist ROS - Review of Systems Respiratory: denies: cough, dry, shortness of breath, hemoptysis, SOB with excertion, pleuritic pain, sputum, wheezing, other Cardiovascular: denies: chest pain, palpitations, orthopnea, paroxysmal noc. dyspnea, edema, light headedness, other - Medication Medications: Active Medications Generic Name Dose Route Start Last Admin Trade Name Freq PRN Reason Stop Dose Admin Clonidine 0.1 mg 09/03/19 18:07 09/04/19 00:25 Catapres PO 0.1 mg Q4H PRN Administration SBP Greater Than 180 Folic Acid 1 mg 09/03/19 09:00 09/04/19 09:50 Folvite PO 1 mg DAILY IONA Administration Levetiracetam 750 mg/ Sodium 107.5 mls @ 215 mls/hr 09/02/19 21:00 09/04/19 09:52 Chloride IVPB 107.5 mls BID IONA Administration Magnesium Sulfate 4 gm/ 258 mls @ 86 mls/hr 09/04/19 07:45 09/04/19 09:48 Miscellaneous Medication 1 IVPB 09/04/19 12:00 258 mls each/ Sodium Chloride NOW IONA Administration Iron/Minerals/Multivitamins 1 tab 09/03/19 09:00 09/04/19 09:50 Theragran M PO 1 tab DAILY IONA Administration Lorazepam 2 mg 09/01/19 20:26 09/02/19 17:10 Ativan SLOW IVP 2 mg Q15MIN PRN Administration Seizures Magnesium Chloride 128 mg 09/04/19 09:00 09/04/19 09:53 Slow-Mag PO 128 mg BID IONA Administration Miscellaneous Medication 1 pkt 09/03/19 21:00 09/04/19 09:50 Phos-Nak PO 1 pkt TID IONA Administration Potassium Chloride 20 meq 09/04/19 08:00 09/04/19 09:50 K-Dur PO 20 meq BID-WM IONA Administration Propranolol HCl 20 mg 09/03/19 21:00 09/04/19 09:50 Inderal PO 20 mg TID IONA Administration Sodium Chloride 10 ml 09/01/19 21:00 09/04/19 09:50 Flush - Normal Saline IVF 10 ml Q12HR IONA Administration Thiamine HCl 100 mg 09/03/19 09:00 09/04/19 09:50 Thiamine PO 100 mg DAILY IONA Administration - Exam General Appearance: NAD Neck: supple, no JVD Heart: no murmur, no rubs Respiratory: no wheezes, no ronchi Gastrointestinal: non-tender, non-distended, normal bowel sounds Extremities: no cyanosis, no clubbing Neurological: no new deficit Hosp A/P - Plan DVT proph w/SCDs Toxic Metabolic encephalopathy due to ETOH withdrawal seizures due Hypokalemia/Hypomagnesemia/Hyponatremia/hypophosphatemia Rhabdomyolysis Thrombocytopenia HTN HLD BPH h/o West Nile Encephalitis h/o Essential tremors h/o Neuropathy h/o recurrent falls PLAN: Cont Keppra - change to PO Reduce IVF Replace Magnesium and Phosphorus Cont alcohol withdrawal protocol Cont Inderal Cont PRN meds AM labs Check CK in AM No Lovenox due to thrombocytopenia Cont PT/OT
[2019-09-04] MEDS ORDERED: Artificial Tears 18 DROP/0.9 ML EA EYE PRN (10:37)
[2019-09-04] MEDS: levETIRAcetam 500 mg/5 ml Oral Solution PO SCH (21:43)
[2019-09-04] MEDS: Melatonin 3 MG TAB PO PRN (22:10)
[2019-09-05 03:39] LABS: Anion Gap 12 mmol/L (10-20); BUN (Urea Nitrogen) 7 mg/dL (8.4-25.7); Calc. Creatinine Clearance 99 mL/min (70-130); Calcium 9.1 mg/dL (7.8-10.44); Carbon Dioxide 27 mmol/L (23-31); Chloride 97 mmol/L (98-107); Estimated GFR-MDRD Greater than 90; Glucose 105 mg/dL (80-115); Potassium 4.6 mmol/L (3.5-5.1); Sodium 131 mmol/L (136-145)
[2019-09-05 03:43] LABS: Band 2 % (5-11); CK (CPK) 440 U/L (30-200); Hemoglobin 13.8 g/dL (14.0-18.0); Lymphocytes 40 % (21-51); MDiff Complete? YES; Magnesium 1.8 mg/dL (1.6-2.6); Mean Corpuscular HGB CONC 32.3 g/dL (32.0-36.0); Mean Corpuscular Hemoglobin 30.9 pg (27.0-31.0); Mean Corpuscular Volume 95.8 fL (78.0-98.0); Mean Platelet Volume 8.3 fL (7.4-10.4); Monocytes 18 % (0-10); Neutrophil 40 % (42-75); Phosphorus 2.9 mg/dL (2.3-4.7); Platelet Count 120 thou/uL (130-400); Platelet Morphology Comment Appears Decreased; RBC Distribution Width 12.6 % (11.5-14.5); Red Blood Cell (RBC) Count 4.48 mill/uL (4.70-6.10); White Blood Cell (WBC) Count 4.9 thou/uL (4.8-10.8)
[2019-09-05] MEDS: NS 0.9% w/ 20 MEQ KCL 1,000 ML/1,000 ML BAG IV SCH (06:23)
[2019-09-05] MEDS: levETIRAcetam 500 mg/5 ml Oral Solution PO SCH ×2 (09:03→21:10)
[2019-09-05] MEDS: Potassium Chloride 20 MEQ TAB PO SCH ×2 (09:03→16:57)
[2019-09-05] MEDS: Folic Acid 1 MG TAB PO SCH (09:03)
[2019-09-05] MEDS: PHOS-NAK 1 PKT PACK PO SCH ×3 (09:04→21:10)
[2019-09-05] MEDS: Magnesium Chloride 64 MG TAB PO SCH ×2 (09:04→21:12)
[2019-09-05] MEDS: Multivitamin W/ Minerals 1 TAB PO SCH (09:04)
[2019-09-05] MEDS: Propranolol HCl 20 MG TAB PO SCH ×3 (09:05→21:10)
[2019-09-05] MEDS: Thiamine 100 MG TAB PO SCH (09:06)
[2019-09-05] MEDS: cloNIDine 0.1 MG TAB PO PRN ×2 (10:39→16:57)
--- NOTE | 2019-09-05 15:38 | PDOC.HOSPP ---
- Subjective Encounter Date: 09/05/19 Subjective: patient seen on f/u for encepahlopathy, convulsions possible withdrawal and electrolite disturbances, patient refers feels fine denies fever chills agitation, does refer feeling very weak unable to ambulate by himself w/o a walker. patient is interested in rehab - Objective Vital Signs & Weight: Vital Signs (12 hours) Temp Pulse Resp BP BP Pulse Ox 09/05/19 11:08 97.4 F L 78 18 162/96 H 96 09/05/19 10:39 172/115 H 09/05/19 08:00 100 09/05/19 07:00 96.0 F L 09/05/19 03:41 96.2 F L Weight Admit Weight 142 lb 4 oz Weight 142 lb 4 oz Most Recent Monitor Data Heart Rate from ECG 70 NIBP 183/112 NIBP BP-Mean 135 Respiration from ECG 16 SpO2 100 I&O: 09/04/19 09/05/19 09/06/19 06:59 06:59 06:59 Intake Total 3690 1570 Output Total 2550 1850 Balance 1140 -280 Result Diagrams: 09/05/19 03:11 09/05/19 03:11 Hospitalist ROS - Review of Systems All other systems reviewed; all pertinent +/- noted in HPI/Subj - Medication Medications: Active Medications Generic Name Dose Route Start Last Admin Trade Name Freq PRN Reason Stop Dose Admin Clonidine 0.1 mg 09/03/19 18:07 09/05/19 10:39 Catapres PO 0.1 mg Q4H PRN Administration SBP Greater Than 180 Folic Acid 1 mg 09/03/19 09:00 09/05/19 09:03 Folvite PO 1 mg DAILY IONA Administration Potassium Chloride/Sodium Chloride 1,000 ml in 1,000 mls @ 50 mls/hr 09/04/19 09:50 09/05/19 06:23 Ns 0.9% W/ 20 Meq Kcl IV 1,000 mls .Q20H IONA Administration Iron/Minerals/Multivitamins 1 tab 09/03/19 09:00 09/05/19 09:04 Theragran M PO 1 tab DAILY IONA Administration Levetiracetam 750 mg 09/04/19 21:00 09/05/19 09:03 Keppra Oral Solution PO 750 mg BID IONA Administration Lorazepam 2 mg 09/01/19 20:26 09/02/19 17:10 Ativan SLOW IVP 2 mg Q15MIN PRN Administration Seizures Magnesium Chloride 128 mg 09/04/19 09:00 09/05/19 09:04 Slow-Mag PO 128 mg BID IONA Administration Melatonin 6 mg 09/04/19 22:07 09/04/19 22:10 Melatonin PO 6 mg HSPRN PRN Administration Insomnia Miscellaneous Medication 1 pkt 09/03/19 21:00 09/05/19 15:04 Phos-Nak PO 1 pkt TID IONA Administration Potassium Chloride 20 meq 09/04/19 08:00 09/05/19 09:03 K-Dur PO 20 meq BID-WM IONA Administration Propranolol HCl 20 mg 09/03/19 21:00 09/05/19 15:04 Inderal PO 20 mg TID IONA Administration Sodium Chloride 10 ml 09/01/19 21:00 09/05/19 09:05 Flush - Normal Saline IVF 10 ml Q12HR IONA Administration Thiamine HCl 100 mg 09/03/19 09:00 09/05/19 09:06 Thiamine PO 100 mg DAILY IONA Administration - Exam Eye: PERRL, anicteric sclera ENT: normocephalic atraumatic, no oropharyngeal lesions Neck: supple, symmetric, no JVD Heart: RRR, no murmur, no gallops Respiratory: CTAB, no wheezes, no rales Gastrointestinal: soft, non-tender, non-distended Extremities: no cyanosis, no clubbing Skin: normal turgor, no lesions Neurological: cranial nerve grossly intact, normal sensation to touch Musculoskeletal: normal tone, generalized weakness, diffuse muscle atrophy Psychiatric: normal affect, normal behavior, A&O x 3 Hosp A/P - Plan toxic metabolic encephalopathy rhabdomyolysis htn hld bph h/o of west [place]ile virus essentials tremors hyponatremia plan continue keppra po replace electrolytes as needed ciwa withdrawal protocol continue pt ot continues w hyponatremia, consider 2 causes, will order serum / urine osmalality and tsh, consider nephro eval if pt does not improve rehab evaluation during wkdays
[2019-09-05] MEDS ORDERED: Melatonin 3 MG TAB PO SCH (21:00)
[2019-09-05] MEDS: Melatonin 3 MG TAB PO PRN (21:09)
[2019-09-06] MEDS: NS 0.9% w/ 20 MEQ KCL 1,000 ML/1,000 ML BAG IV SCH (04:08)
[2019-09-06 04:32] LABS: Anion Gap 13 mmol/L (10-20); BUN (Urea Nitrogen) 8 mg/dL (8.4-25.7); Band 2 % (5-11); Calc. Creatinine Clearance 96 mL/min (70-130); Calcium 9.4 mg/dL (7.8-10.44); Carbon Dioxide 26 mmol/L (23-31); Chloride 96 mmol/L (98-107); Estimated GFR-MDRD Greater than 90; Glucose 103 mg/dL (80-115); Hemoglobin 13.3 g/dL (14.0-18.0); Hypochromia SLIGHT = 6-15 cells (100X) (0-5/hpf); Lymphocytes 28 % (21-51); MDiff Complete? YES; Mean Corpuscular HGB CONC 32.5 g/dL (32.0-36.0); Mean Corpuscular Hemoglobin 31.3 pg (27.0-31.0); Mean Corpuscular Volume 96.2 fL (78.0-98.0); Mean Platelet Volume 8.3 fL (7.4-10.4); Monocytes 16 % (0-10); Neutrophil 54 % (42-75); Platelet Count 133 thou/uL (130-400); Platelet Morphology Comment Appears Adequate; Potassium 4.7 mmol/L (3.5-5.1); RBC Distribution Width 12.7 % (11.5-14.5); Red Blood Cell (RBC) Count 4.26 mill/uL (4.70-6.10); Sodium 130 mmol/L (136-145); White Blood Cell (WBC) Count 4.9 thou/uL (4.8-10.8)
[2019-09-06] MEDS: cloNIDine 0.1 MG TAB PO PRN ×2 (05:10→11:52)
[2019-09-06] MEDS: PHOS-NAK 1 PKT PACK PO SCH (09:34)
[2019-09-06] MEDS: Folic Acid 1 MG TAB PO SCH (09:34)
[2019-09-06] MEDS: Multivitamin W/ Minerals 1 TAB PO SCH (09:35)
[2019-09-06] MEDS: Thiamine 100 MG TAB PO SCH (09:35)
[2019-09-06] MEDS: Potassium Chloride 20 MEQ TAB PO SCH (09:35)
[2019-09-06] MEDS: Magnesium Chloride 64 MG TAB PO SCH ×2 (09:36→20:37)
[2019-09-06] MEDS: levETIRAcetam 500 mg/5 ml Oral Solution PO SCH ×2 (09:37→20:38)
[2019-09-06] MEDS: Propranolol HCl 20 MG TAB PO SCH ×3 (09:38→20:38)
[2019-09-06] MEDS ORDERED: Sodium Chloride 0.9% 1,000 ML IV SCH (12:15)
--- NOTE | 2019-09-06 13:19 | PDOC.HOSPP ---
- Subjective Encounter Date: 09/06/19 Subjective: NEUROLOGY PROGRESS NOTE No seizures since admission. Tolerating Keppra well. - Objective Vital Signs & Weight: Vital Signs (12 hours) Temp Pulse Pulse Pulse Resp BP BP 09/06/19 12:00 180/97 H 09/06/19 11:52 180/97 H 09/06/19 11:50 98 F 64 18 09/06/19 09:32 97.5 F L 73 18 09/06/19 08:54 66 75 142/95 H 09/06/19 08:00 119/81 09/06/19 05:10 190/95 H 09/06/19 04:51 98.5 F 57 L 18 09/06/19 04:00 152/95 H BP BP Pulse Ox 09/06/19 12:00 09/06/19 11:52 09/06/19 11:50 180/97 H 99 09/06/19 09:32 119/81 98 09/06/19 08:54 151/91 H 09/06/19 08:00 09/06/19 05:10 09/06/19 04:51 195/95 H 98 09/06/19 04:00 Weight Admit Weight 142 lb 4 oz Weight 142 lb 4 oz Most Recent Monitor Data Heart Rate from ECG 70 NIBP 183/112 NIBP BP-Mean 135 Respiration from ECG 16 SpO2 100 I&O: 09/05/19 09/06/19 09/07/19 06:59 06:59 06:59 Intake Total 1570 2460 Output Total 1850 1620 Balance -280 840 Result Diagrams: 09/06/19 03:49 09/06/19 03:49 Radiology Reviewed by me: Yes EKG Reviewed by me: Yes Hospitalist ROS - Review of Systems Constitutional: denies: fever, chills, sweats, weakness, malaise, other Eyes: denies: pain, vision change, conjunctivae inflammation, eyelid inflammation, redness, other ENT: denies: ear pain, ear discharge, nose pain, nose discharge, nose congestion , mouth pain, mouth swelling, throat pain, throat swelling, other Respiratory: denies: cough, dry, shortness of breath, hemoptysis, SOB with excertion, pleuritic pain, sputum, wheezing, other Cardiovascular: denies: chest pain, palpitations, orthopnea, paroxysmal noc. dyspnea, edema, light headedness, other Gastrointestinal: denies: nausea, vomiting, abdominal pain, diarrhea, constipation, melena, hematochezia, other Musculoskeletal: denies: neck pain, shoulder pain, arm pain, back pain, hand pain, leg pain, foot pain, other Neurological: reports: confusion, seizures. denies: weakness, numbness, incoordination, change in speech, other - Medication Medications: Active Medications Generic Name Dose Route Start Last Admin Trade Name Freq PRN Reason Stop Dose Admin Clonidine 0.1 mg 09/03/19 18:07 09/06/19 11:52 Catapres PO 0.1 mg Q4H PRN Administration SBP Greater Than 180 Folic Acid 1 mg 09/03/19 09:00 09/06/19 09:34 Folvite PO 1 mg DAILY IONA Administration Sodium Chloride 1,000 mls @ 50 mls/hr 09/06/19 12:15 09/06/19 12:34 Normal Saline 0.9% IV 1,000 mls .Q20H IONA Administration Iron/Minerals/Multivitamins 1 tab 09/03/19 09:00 09/06/19 09:35 Theragran M PO 1 tab DAILY IONA Administration Levetiracetam 750 mg 09/04/19 21:00 09/06/19 09:37 Keppra Oral Solution PO 750 mg BID IONA Administration Lorazepam 2 mg 09/01/19 20:26 09/02/19 17:10 Ativan SLOW IVP 2 mg Q15MIN PRN Administration Seizures Magnesium Chloride 128 mg 09/04/19 09:00 09/06/19 09:36 Slow-Mag PO 128 mg BID IONA Administration Melatonin 6 mg 09/04/19 22:07 09/05/19 21:09 Melatonin PO 6 mg HSPRN PRN Administration Insomnia Propranolol HCl 20 mg 09/03/19 21:00 09/06/19 09:38 Inderal PO Not Given TID IONA Sodium Chloride 10 ml 09/01/19 21:00 09/06/19 09:35 Flush - Normal Saline IVF Not Given Q12HR IONA Thiamine HCl 100 mg 09/03/19 09:00 09/06/19 09:35 Thiamine PO 100 mg DAILY IONA Administration - Exam General Appearance: awake alert Eye: PERRL, anicteric sclera ENT: normocephalic atraumatic Neck: supple Heart: RRR Respiratory: CTAB Gastrointestinal: soft Extremities: no cyanosis Skin: normal turgor Neurological: cranial nerve grossly intact, normal sensation to touch, no weakness, no focal deficits, no new deficit Musculoskeletal: normal tone, no muscle wasting Musculoskeletal - other findings: generalized weakness Psychiatric: normal affect, normal behavior, A&O x 3, oriented to person, oriented to place, oriented to time Hosp A/P (1) Seizures Code(s): R56.9 - UNSPECIFIED CONVULSIONS Status: Acute (2) Alcohol withdrawal Code(s): F10.239 - ALCOHOL DEPENDENCE WITH WITHDRAWAL, UNSPECIFIED Status: Acute (3) HTN (hypertension) Code(s): I10 - ESSENTIAL (PRIMARY) HYPERTENSION Status: Acute (4) Hypokalemia Code(s): E87.6 - HYPOKALEMIA Status: Acute (5) Hypomagnesemia Code(s): E83.42 - HYPOMAGNESEMIA Status: Acute (6) Hyponatremia Code(s): E87.1 - HYPO-OSMOLALITY AND HYPONATREMIA Status: Acute - Plan PT/OT, DVT proph w/lovenox 64 year old with seizures and alcohol dependence. No documented seizures since initiation of Keppra. MRI brain reviewed which was negative for acute intracranial pathology. Continue keppra 750 mg twice daily. Ativan 2 mg IV for seizures greater than 2 minutes. Observe seizure precautions including driving restrictions. EEG reviewed and is negative for underlying seizure activity. Neurochecks every hours [facility] protocol to prevent alcohol withdrawal. Correct electrolyte abnormalities PT/OT for generalized weakness. Continue home medications. Continue medical management per primary team. Plan discussed with the patient
--- NOTE | 2019-09-06 17:56 | PDOC.HOSPP ---
- Subjective Encounter Date: 09/06/19 Encounter Time: 16:00 Subjective: Patient seen and examined for Encephalopathy. Mentation improving. No new complaints. No overnight events - Objective Vital Signs & Weight: Vital Signs (12 hours) Temp Pulse Pulse Pulse Resp BP BP 09/06/19 17:00 98.1 F 62 16 157/93 H 09/06/19 12:00 180/97 H 09/06/19 11:52 180/97 H 09/06/19 11:50 98 F 64 18 09/06/19 09:32 97.5 F L 73 18 09/06/19 08:54 66 75 142/95 H 09/06/19 08:00 119/81 BP BP Pulse Ox 09/06/19 17:00 157/93 H 99 09/06/19 12:00 09/06/19 11:52 09/06/19 11:50 180/97 H 99 09/06/19 09:32 119/81 98 09/06/19 08:54 151/91 H 09/06/19 08:00 Weight Admit Weight 142 lb 4 oz Weight 142 lb 4 oz Most Recent Monitor Data Heart Rate from ECG 70 NIBP 183/112 NIBP BP-Mean 135 Respiration from ECG 16 SpO2 100 I&O: 09/05/19 09/06/19 09/07/19 06:59 06:59 06:59 Intake Total 1570 2460 980 Output Total 1850 1620 Balance -280 840 980 Result Diagrams: 09/06/19 03:49 09/06/19 03:49 EKG Reviewed by me: Yes (Tele SR) Hospitalist ROS - Review of Systems Respiratory: denies: cough, dry, shortness of breath, hemoptysis, SOB with excertion, pleuritic pain, sputum, wheezing, other Cardiovascular: denies: chest pain, palpitations, orthopnea, paroxysmal noc. dyspnea, edema, light headedness, other - Medication Medications: Active Medications Generic Name Dose Route Start Last Admin Trade Name Freq PRN Reason Stop Dose Admin Clonidine 0.1 mg 09/03/19 18:07 09/06/19 11:52 Catapres PO 0.1 mg Q4H PRN Administration SBP Greater Than 180 Folic Acid 1 mg 09/03/19 09:00 09/06/19 09:34 Folvite PO 1 mg DAILY IONA Administration Sodium Chloride 1,000 mls @ 50 mls/hr 09/06/19 12:15 09/06/19 12:34 Normal Saline 0.9% IV 1,000 mls .Q20H IONA Administration Iron/Minerals/Multivitamins 1 tab 09/03/19 09:00 09/06/19 09:35 Theragran M PO 1 tab DAILY IONA Administration Levetiracetam 750 mg 09/04/19 21:00 09/06/19 09:37 Keppra Oral Solution PO 750 mg BID IONA Administration Lorazepam 2 mg 09/01/19 20:26 09/02/19 17:10 Ativan SLOW IVP 2 mg Q15MIN PRN Administration Seizures Magnesium Chloride 128 mg 09/04/19 09:00 09/06/19 09:36 Slow-Mag PO 128 mg BID IONA Administration Melatonin 6 mg 09/04/19 22:07 09/05/19 21:09 Melatonin PO 6 mg HSPRN PRN Administration Insomnia Propranolol HCl 20 mg 09/03/19 21:00 09/06/19 14:08 Inderal PO 20 mg TID IONA Administration Sodium Chloride 10 ml 09/01/19 21:00 09/06/19 09:35 Flush - Normal Saline IVF Not Given Q12HR IONA Thiamine HCl 100 mg 09/03/19 09:00 09/06/19 09:35 Thiamine PO 100 mg DAILY IONA Administration - Exam General Appearance: NAD Neck: supple, no JVD Heart: RRR, no gallops Respiratory: no wheezes, no ronchi Gastrointestinal: non-tender, normal bowel sounds Extremities: no cyanosis Hosp A/P - Plan DVT proph w/lovenox, DVT proph w/SCDs Toxic Metabolic encephalopathy due to ETOH withdrawal seizures Hypokalemia/Hypomagnesemia/Hyponatremia/hypophosphatemia Rhabdomyolysis Thrombocytopenia HTN HLD BPH h/o West Nile Encephalitis h/o Essential tremors h/o Neuropathy h/o recurrent falls PLAN: Cont Keppra Change IVF to NS Cont alcohol withdrawal protocol Cont Inderal and PRN meds No Lovenox due to thrombocytopenia Refusing Rehab DC home in AM if stable
[2019-09-06] MEDS: cloNIDine 0.1 MG TAB PO SCH (20:38)
[2019-09-06] MEDS: Melatonin 3 MG TAB PO PRN (21:51)
[2019-09-07] MEDS: cloNIDine 0.1 MG TAB PO PRN (01:02)
[2019-09-07 04:29] LABS: Phosphorus 4.5 mg/dL (2.3-4.7)
[2019-09-07 04:30] LABS: Anion Gap 13 mmol/L (10-20); BUN (Urea Nitrogen) 9 mg/dL (8.4-25.7); Calc. Creatinine Clearance 100 mL/min (70-130); Calcium 9.4 mg/dL (7.8-10.44); Carbon Dioxide 24 mmol/L (23-31); Chloride 95 mmol/L (98-107); Estimated GFR-MDRD Greater than 90; Glucose 109 mg/dL (80-115); Magnesium 1.2 mg/dL (1.6-2.6); Sodium 128 mmol/L (136-145)
[2019-09-07] MEDS ORDERED: Magnesium Sulfate 4 GM in Sodium Chloride 0.9% 250 ML 250 ML IVPB SCH (07:30)
[2019-09-07] MEDS: cloNIDine 0.1 MG TAB PO SCH ×2 (08:08→20:52)
[2019-09-07] MEDS: levETIRAcetam 500 mg/5 ml Oral Solution PO SCH ×2 (08:08→20:51)
[2019-09-07] MEDS: Folic Acid 1 MG TAB PO SCH (08:09)
[2019-09-07] MEDS: Propranolol HCl 20 MG TAB PO SCH ×4 (08:09→20:52)
[2019-09-07] MEDS: Thiamine 100 MG TAB PO SCH (08:09)
[2019-09-07] MEDS: Multivitamin W/ Minerals 1 TAB PO SCH (08:10)
[2019-09-07] MEDS: Magnesium Chloride 64 MG TAB PO SCH ×2 (09:11→20:56)
--- NOTE | 2019-09-07 09:21 | CON ---
DATE OF CONSULTATION: 09/07/2019 SERVICE: Nephrology. REASON FOR CONSULTATION: Hyponatremia. REQUESTING PHYSICIAN: Dr. Roberto Lambert. CHIEF COMPLAINT: Fall and seizure. HISTORY OF PRESENT ILLNESS: A 64-year-old male with known history of intermittent seizures after West Nile infection about 8 years ago, hypertension, hyperlipidemia, and others, admitted on September 01 after a fall as well as seizures. The patient then was noted to have acute kidney injury and hyponatremia and some mental status change. He was treated with IV fluid on supportive care with resolution of elevated creatinine and marginal increase in plasma sodium from 130 on admission to a peak of 132 next day, before started trending down while IV fluid discontinued to another of 128 this morning, necessitating Nephrology consult. The patient is back to baseline. Denied nausea or vomiting. Admitted to intermittent alcohol ingestion, but denied daily alcohol use. He reported chronic hyponatremia, for which he adds additional salt to his diet. He also reported intermittent hypertension. He denied confusion or mental status change or change in vision. PAST MEDICAL HISTORY: 1. Hypertension. 2. Hyperlipidemia. 3. Seizure disorder. 4. Chronic alcohol use. 5. Prior West Nile infection. PAST SURGICAL HISTORY: Cholecystectomy. FAMILY HISTORY: Reviewed, but noncontributory. SOCIAL HISTORY: The patient is . Lives with spouse. Admitted to some day alcohol use up to 5 drinks a day, but not on every day. He denied smoking or recreational drug use. ALLERGIES: NO KNOWN DRUG ALLERGIES REPORTED. HOME MEDICATIONS: 1. Zetia 10 mg p.o. daily. 2. Fish oil 1000 mg p.o. daily. 3. Glucosamine 1500 mg p.o. daily. 4. Inderal ER 40 mg p.o. daily. 5. Ubidecarenone/vitamin E 50 mg/5 units one capsule p.o. daily. 6. Vitamin B complex 1 capsule p.o. daily. CURRENT HOSPITAL MEDICATIONS: 1. Sodium chloride at 50 mL, which has been discontinued this morning. 2. Clonidine 0.1 mg p.o. b.i.d., which is yet to be commenced. 3. Keppra 750 mg p.o. b.i.d. 4. Thiamine 100 mg p.o. daily. 5. Lorazepam 2 mg IV q.15 p.r.n. 6. Clonidine 0.1 mg p.o. q.4 p.r.n. for systolic blood pressure above 180. REVIEW OF SYSTEMS: A 12-point review of system performed was negative other than pertinent positives and negatives included in the history of present illness. PHYSICAL EXAMINATION: VITAL SIGNS: Temperature 97.3, pulse 67, respiratory rate 12, SpO2 97% on room air, blood pressure is 164/87. Review of vitals showed that blood pressure systolic has ranged from 111 to 205. Intake and output in the last 24 hours showed total intake of 2060 with total output of 1900. GENERAL: Comfortable male patient, in no distress. Afebrile. Anicteric. Acyanotic. HEENT: Normocephalic and atraumatic. Oral mucosa is moist. Mild subconjunctival hemorrhage on the right eye noted. NECK: Supple with no JVD. CARDIOVASCULAR: Regular rhythm and rate with normal heart sounds 1 and 2. RESPIRATORY: Fair air entry bilaterally with some transmitted breath sounds. No obvious rhonchi or use of accessory muscles appreciated. GI: Full, soft, nontender, nondistended with normal bowel sounds. EXTREMITIES: Grossly normal looking, atraumatic with no edema or erythema. [employer]: Conscious, alert and oriented x3 with appropriate mental status. Cranial nerves 2 through 12 are grossly intact. The patient moves all extremities. DIAGNOSTIC DATA: CBC yesterday showed WBC count of 4.9, hemoglobin of 13.3, MCV of 96.3, platelet of 133. BMP today showed sodium 128, potassium 4.0, chloride 95, CO2 of 24, BUN 9, creatinine 0.66, glucose 109, calcium 9.4. Magnesium is 1.2, phosphorus is 4.5. Of note, on presentation, sodium was 130, which improved to 132 the next day, but progressively has trended down from 132 to 128 today. Urine osmolality performed on September 05 was 293 and serum osmolality performed same day September 06, 2019, was 272. CT scan of the brain performed on August 31 showed no acute intracranial abnormality. However, there is generalized ventricular and sulcal prominence as well as decreased attenuation of the periventricular white matter suggestive of some chronic white matter changes. ASSESSMENT: 1. Hyponatremia: This is consistent with syndrome of inappropriate antidiuretic hormone secretion given elevated urine osmolality of 293 in the face of plasma osmolality of 272. The patient with prior history of [place] Nile disease associated with some seizure disorder . He also admitted to excessive free water intake at home, he admitted to chronic low sodium, for which he adds salt to his diet. 2. 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 Resolved with IV fluid, but sodium continued to trend downwards with contraction of IV fluid therapy. 3. Hypertension: The patient has labile hypertension ranging from 113 to 205 systolic. Etiology is unclear. He also admitted to some tremors and is on Inderal. Differentials include pheochromocytoma and other hormonal causes of hypertension. 4. Hypophosphatemia: Repleted. 5. Hypomagnesemia. PLAN: 1. We will get repeat urine and plasma osmolality as well as urine microscopy and urinalysis as well as urine sodium. 2. We will replete serum magnesium with magnesium sulfate 4 g. 3. Agree with p.r.n. clonidine for now. 4. We will also get plasma metanephrines to rule out pheochromocytoma. 5. We will start fluid restriction of 2 L per 24 hours. Since the patient is hemodynamically stable and has no neurological deficit as well as with chronic history of hyponatremia, I believe the patient can be discharged from Nephrology point of view once blood pressure is better controlled, to follow up in the office in 1 week with repeat labs. I have discussed the following with the primary attending. Job ID: [id number]
[2019-09-07 10:37] LABS: Bacteria/HPF None Seen HPF (None Seen); Bilirubin Negative (Negative); Blood, Urine Negative (Negative); Clarity Clear (Clear); Glucose, Urine (Dipstick) Normal (Negative); Leukocyte Negative Leu/uL (Negative); Nitrite Negative (Negative); Protein, Urine (Dipstick) Negative (Neg-Trace); RBC/HPF 0-3 HPF (0-3); Squamous Epithelial None Seen HPF (0-3); Urobilinogen Normal mg/dL (Less than 2); WBC/HPF None Seen HPF (0-3)
--- NOTE | 2019-09-07 16:30 | PDOC.HOSPP ---
- Subjective Encounter Date: 09/07/19 Encounter Time: 12:30 Subjective: Patient seen and examined for seizure/encephalopathy. No new focal deficits. No new complaints. No overnight events - Objective Vital Signs & Weight: Vital Signs (12 hours) Temp Pulse Resp BP BP Pulse Ox 09/07/19 15:42 97.7 F 69 18 154/85 H 98 09/07/19 11:45 97.6 F 60 18 139/77 98 09/07/19 09:09 70 134/75 09/07/19 08:08 205/106 H 94 L 09/07/19 07:50 98.2 F 73 18 205/106 H 94 L Weight Admit Weight 142 lb 4 oz Weight 142 lb 4 oz Most Recent Monitor Data Heart Rate from ECG 70 NIBP 183/112 NIBP BP-Mean 135 Respiration from ECG 16 SpO2 100 I&O: 09/06/19 09/07/19 09/08/19 06:59 06:59 06:59 Intake Total 2460 2060 Output Total 1620 1900 Balance 840 160 Result Diagrams: 09/06/19 03:49 09/07/19 03:39 EKG Reviewed by me: Yes (Tele SR) Hospitalist ROS - Review of Systems Respiratory: denies: cough, dry, shortness of breath, hemoptysis, SOB with excertion, pleuritic pain, sputum, wheezing, other Cardiovascular: denies: chest pain, palpitations, orthopnea, paroxysmal noc. dyspnea, edema, light headedness, other - Medication Medications: Active Medications Generic Name Dose Route Start Last Admin Trade Name Freq PRN Reason Stop Dose Admin Clonidine 0.1 mg 09/03/19 18:07 09/07/19 01:02 Catapres PO 0.1 mg Q4H PRN Administration SBP Greater Than 180 Clonidine 0.1 mg 09/06/19 21:00 09/07/19 08:08 Catapres PO 0.1 mg BID IONA Administration Folic Acid 1 mg 09/03/19 09:00 09/07/19 08:09 Folvite PO 1 mg DAILY IONA Administration Iron/Minerals/Multivitamins 1 tab 09/03/19 09:00 09/07/19 08:10 Theragran M PO 1 tab DAILY IONA Administration Levetiracetam 750 mg 09/04/19 21:00 09/07/19 08:08 Keppra Oral Solution PO 750 mg BID IONA Administration Lorazepam 2 mg 09/01/19 20:26 09/02/19 17:10 Ativan SLOW IVP 2 mg Q15MIN PRN Administration Seizures Magnesium Chloride 128 mg 09/04/19 09:00 09/07/19 09:11 Slow-Mag PO 128 mg BID IONA Administration Melatonin 6 mg 09/04/19 22:07 09/06/19 21:51 Melatonin PO 6 mg HSPRN PRN Administration Insomnia Propranolol HCl 20 mg 09/07/19 09:00 09/07/19 16:05 Inderal PO 20 mg QID IONA Administration Sodium Chloride 10 ml 09/01/19 21:00 09/07/19 08:10 Flush - Normal Saline IVF 10 ml Q12HR IONA Administration Thiamine HCl 100 mg 09/03/19 09:00 09/07/19 08:09 Thiamine PO 100 mg DAILY IONA Administration - Exam General Appearance: NAD Neck: supple, no JVD Heart: no gallops Respiratory: CTAB, no rales Gastrointestinal: non-tender, normal bowel sounds Extremities: no clubbing Neurological: no new deficit Hosp A/P - Plan DVT proph w/SCDs Toxic Metabolic encephalopathy due to ETOH withdrawal seizures Hypokalemia/Hypomagnesemia/Hyponatremia/hypophosphatemia Rhabdomyolysis Thrombocytopenia HTN - uncontrolled HLD BPH h/o West Nile Encephalitis h/o Essential tremors h/o Neuropathy h/o recurrent falls PLAN: Consult Nephrology for hyponatremia Increase Inderal dosing Add Clonidine 0.1 mg BID Cont Keppra DC IVF Replace Magnesium AM labs DC home in AM if stable
[2019-09-07] MEDS: Acetaminophen/Codeine 30-300mg Tablet PO PRN (16:34)
[2019-09-07] MEDS: Melatonin 3 MG TAB PO PRN (20:52)
[2019-09-08] MEDS: Acetaminophen/Codeine 30-300mg Tablet PO PRN ×2 (02:56→11:18)
[2019-09-08 04:43] LABS: Anion Gap 12 mmol/L (10-20); BUN (Urea Nitrogen) 10 mg/dL (8.4-25.7); Calc. Creatinine Clearance 91 mL/min (70-130); Calcium 9.6 mg/dL (7.8-10.44); Carbon Dioxide 28 mmol/L (23-31); Chloride 94 mmol/L (98-107); Estimated GFR-MDRD Greater than 90; Glucose 100 mg/dL (80-115); Magnesium 1.4 mg/dL (1.6-2.6); Potassium 4.2 mmol/L (3.5-5.1); Sodium 130 mmol/L (136-145)
[2019-09-08] MEDS ORDERED: Magnesium Sulfate 4 GM, Admixture Fee 1 EACH in Sodium Chloride 0.9% 250 ML 250 ML IVPB SCH (08:00)
[2019-09-08] MEDS: levETIRAcetam 500 mg/5 ml Oral Solution PO SCH (08:56)
[2019-09-08] MEDS: Multivitamin W/ Minerals 1 TAB PO SCH (08:56)
[2019-09-08] MEDS: Propranolol HCl 20 MG TAB PO SCH ×2 (08:56→11:51)
[2019-09-08] MEDS: Folic Acid 1 MG TAB PO SCH (08:56)
[2019-09-08] MEDS: Thiamine 100 MG TAB PO SCH (08:56)
[2019-09-08] MEDS: Magnesium Chloride 64 MG TAB PO SCH (08:57)
[2019-09-08] MEDS ORDERED: Fish Oil 1,000 MG CAP PO SCH (09:00)
[2019-09-08] MEDS ORDERED: Ubidecarenone 50 MG CAP PO SCH (09:00)
[2019-09-08] MEDS ORDERED: Ezetimibe 10 MG TAB PO SCH (09:00)
[2019-09-08] MEDS ORDERED: Cyanocobalamin (Vitamin B-12) 1,000 MCG TAB PO SCH (09:00)
[2019-09-08] MEDS ORDERED: Amlodipine 5 MG TAB PO SCH (09:00)
--- NOTE | 2019-09-08 11:17 | DIS ---
DATE OF ADMISSION: 09/01/2019 DATE OF DISCHARGE: 09/08/2019 PRIMARY CARE PHYSICIAN: Keyonna Whitfield, Nurse Practitioner. DISCHARGE DISPOSITION: Home. PRIMARY DISCHARGE DIAGNOSES: 1. Alcohol withdrawal syndrome. 2. New-onset hypertension. 3. Abnormal electrolytes, replaced. 4. Seizure. SECONDARY DISCHARGE DIAGNOSIS: Alcohol abuse. PRIMARY PROCEDURE/OPERATION: EEG. RADIOLOGICAL INVESTIGATION: CT of brain showed no acute intracranial process. CT of cervical spine, no fracture. Chest x-ray, no acute cardiopulmonary process. Hip x-ray, no fracture. MRI of brain, no acute process. SIGNIFICANT LABORATORY DATA: WBC 4.9, hemoglobin 13.3, platelet 133. Sodium 130, potassium 4.2, chloride 94, calcium 9.6. Urinalysis normal. DISCHARGE MEDICATIONS: 1. Folic acid 1 mg p.o. daily. 2. Thiamine 100 mg p.o. daily. 3. Inderal 20 mg q.i.d. 4. Slow-Mag 128 mg p.o. b.i.d. 5. Keppra 750 mg b.i.d. 6. Amlodipine 5 mg p.o. b.i.d. 7. Vitamin B complex 1 capsule daily. 8. Coenzyme Q10 one capsule daily. 9. Glucosamine 1500 mg p.o. daily. 10. Fish oil 1000 mg p.o. daily. 11. Zetia 10 mg p.o. daily. CONTRAINDICATION: None. CODE STATUS: Full code. INPATIENT CONSULTANTS: Neurology was following while in hospital. Nephrology was consulted. TEST RESULTS PENDING ON DISCHARGE: None. ALLERGIES: NO KNOWN DRUG ALLERGIES. DISCHARGE PLAN: Post hospital, the patient will follow up with Nurse Practitioner, Keyonna Whitfield, in 1 week and the patient has appointment with Dr. Casanova on September 14, 2019, at 10:00 a.m. HOSPITAL COURSE: This is a 64-year-old male, who was admitted on September 01, 2019. At that time, the patient was found with a seizure. The patient is alcoholic and there was alcohol withdrawal syndrome and the patient was having encephalopathy, which was related with alcohol withdrawal and delirium. The patient had significant abnormal electrolytes including hypomagnesemia, hypokalemia, hyponatremia, which were replaced while in hospital. He had lactic acidosis, that was corrected. He had rhabdomyolysis, that was improved with IV fluid. While in hospital, he had EEG, which was unremarkable. MRI was negative. All radiological investigation, unremarkable. During this admission, the patient was also found with the high blood pressure and that is why we started amlodipine. While in hospital, his hyponatremia was attributed to be due to SIADH and that is why necessary fluid restriction and protein diet advised. The patient will follow up with Nephrology. The patient is seen and examined at bedside today. PHYSICAL EXAMINATION: VITAL SIGNS: Today, temperature 97.7, pulse 65, respiratory rate 18, saturation 98% on room air, blood pressure 173/96. Weight 164 pounds. GENERAL: The patient is currently alert and oriented x3. HEENT: Head; normocephalic, atraumatic. NECK: Supple. No JVD. No meningeal signs of irritation. LUNGS: Clear to auscultation without any rhonchi or rales. CARDIAC: S1 and S2. Regular. No murmur. No gallop. No rub. ABDOMEN: Soft, bowel sounds present, nontender, nondistended. No organomegaly. No mass. EXTREMITIES: No edema. NEUROLOGIC: Nonfocal examination. All new medication prescription sent to his pharmacy and the patient is medically stable for discharge. Job ID: [id number]
[2019-09-08 11:18] VITALS: BP 162/85; TEMP 98
--- NOTE | 2019-09-08 14:13 | PRG ---
DATE OF SERVICE: 09/08/2019 SERVICE: Nephrology. SUBJECTIVE: A 64-year-old male seen in followup for hypertension and hypernatremia. No new problem. Denied nausea, vomiting, abdominal pain, or leg edema. OBJECTIVE: VITAL SIGNS: Temperature 97.7, pulse 65, respiratory rate 18, SpO2 of 98% on room air, blood pressure is 173/66. I and O in the last 24 hours showed total intake of 2060 with total output of 1900. GENERAL: Male patient, in no distress. Afebrile. HEENT: Normocephalic, atraumatic. Oral mucosa is moist. CARDIOVASCULAR: Regular rhythm and rate with normal heart sounds 1 and 2. RESPIRATORY: Fair air entry bilaterally with no crackle or rhonchi or use of accessory muscles. GI: Full, soft, nontender, nondistended with normal bowel sounds. EXTREMITIES: Grossly normal looking atraumatic with no edema or erythema. [employer] ATTENDANT: Conscious, alert, oriented x3 with appropriate mental status. Cranial nerves 2 through 12 are grossly intact. The patient has some gait instability. DIAGNOSTIC DATA: Chemistry today showed sodium 130, potassium 4.2, chloride 94, CO2 of 28, BUN 10, creatinine 0.73, glucose 100, calcium 9.6, magnesium 1.4. Urine osmolality yesterday was 284 while plasma osmolality was 269. Urinalysis was unremarkable with pH of 7.0, specific gravity of 1.012, negative protein, blood, nitrite, bilirubin, leukocyte esterase. Microscopy also was unremarkable with RBC of 0 to 3 and no wbc's or bacteria. Urine sodium was 80. ASSESSMENT: 1. Hyponatremia: Acute on chronic: This is due to increased intake of free water as well as poor solute intake. 2. The patient reports chronic hyponatremia. 3. 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 4. 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 5. Uncontrolled hypertension with labile blood pressure. Concerning for pheochromocytoma. 6. Hypomagnesemia: Persistent. 7. 4 g of magnesium sulfate yesterday. Serum magnesium is 1.4 today. PLAN: 1. We will replete plasma magnesium with 4 g of magnesium sulfate. 2. We will discontinue clonidine due to associated rebound hypertension and start amlodipine 5 mg. 3. Plasma metanephrine test is pending at this time. 4. We will continue free water restriction to 2 L per 24 hours. DISPOSITION: The patient can be discharged from Nephrology point of view. However, close followup is recommended and appointment is scheduled for the patient on the 13 of September at 10 a.m. Many thanks for involving us in the care of this patient. Care plan was discussed with the patient and lab request for repeat renal function panel and magnesium were given to patient. Job ID: [id number]
== END 2019-09-08 13:54 | disposition home or self-care (01) | DRG 896 ==
LOC: ERS 16:46 → IMCU/EMU 22:43 → 2NO 09-05 11:40
PROVIDERS: ADMIT Internal Medicine; ATTEND Internal Medicine
DX: F10.231 Alcohol dependence with withdrawal delirium (principal); G92 Toxic encephalopathy; E22.2 Syndrome of inappropriate secretion of antidiuretic hormone; M62.82 Rhabdomyolysis; E87.2 Acidosis; N17.9 Acute kidney failure, unspecified; E87.6 Hypokalemia; E83.42 Hypomagnesemia; I10 Essential (primary) hypertension; G40.909 Epilepsy, unspecified, not intractable, without status epilepticus; D69.6 Thrombocytopenia, unspecified; R29.6 Repeated falls; E83.39 Other disorders of phosphorus metabolism; N40.0 Benign prostatic hyperplasia without lower urinary tract symptoms; E78.5 Hyperlipidemia, unspecified; Z90.49 Acquired absence of other specified parts of digestive tract; Z79.899 Other long term (current) drug therapy
CPT/HCPCS: 36415; 70450; 70551; 71045; 72125; 80048; 80053; 80307; 81001; 82550; 83605; 83735; 83835; 83930; 83935; 84100; 84300; 84443; 85007; 85025; 85027; 94760; 95712; 95816; 95819; 95957; 96365; 96366; 96367; 96374; 96376; J1630; J1953; J2060; J3411; J3475; J3480; J3490; J7030; J7042; J7050

== ENCOUNTER 2022-02-19 15:56 | Emergency (ER) | payer BC | END 2022-02-19 18:01 | disposition home or self-care (01) | LOC: ERS 15:56 | DX: S81.011A Laceration without foreign body, right knee, initial encounter (principal); E78.00 Pure hypercholesterolemia, unspecified; I10 Essential (primary) hypertension; Z79.899 Other long term (current) drug therapy; W22.8XXA Striking against or struck by other objects, initial encounter ==

== ENCOUNTER 2022-03-11 11:40 | Outpatient (CLI) | payer BC, MEDICARE | END 2022-03-11 11:41 | disposition home or self-care (01) | LOC: BICRAD 11:40 | PROVIDERS: ATTEND Nurse Practitioner Family | DX: L03.90 Cellulitis, unspecified (principal); M79.89 Other specified soft tissue disorders ==

== ENCOUNTER 2022-12-03 20:24 | Emergency (ER) | payer OTHER, BC, MEDICARE | END 2022-12-03 21:30 | disposition left against medical advice (07) | LOC: ERS 20:24 | DX: Z53.29 Procedure and treatment not carried out because of patient's decision for other reasons (principal) | CPT/HCPCS: 99284 ==

== ENCOUNTER 2022-12-03 22:59 | Observation (INO) | payer OTHER, BC ==
[2022-12-04 02:22] LABS: #Basophils 0.1 thou/uL (0.0-0.2); #Eosinphils 0.1 thou/uL (0.0-0.7); #Neutrophils 8.9 thou/uL (1.40-6.50); %Basophils 0.3 % (0.0-1.0); %Eosinophils 0.3 % (0.0-10.0); %Lymphocytes 35.7 % (21.0-51.0); %Monocytes 6.1 % (0.0-10.0); Hematocrit 39.7 % (42.0-52.0); Hemoglobin 13.6 g/dL (14.0-18.0); Mean Corpuscular HGB CONC 34.3 g/dL (32.0-36.0); Mean Corpuscular Volume 87.4 fl (78.0-98.0); Mean Platelet Volume 9.6 fL (7.4-10.4); Platelet Count 140 10x3/uL (130-400); RBC Distribution Width 13.2 % (11.5-14.5); Red Blood Cell (RBC) Count 4.54 mill/uL (4.70-6.10); White Blood Cell (WBC) Count 15.6 10x3/uL (4.8-10.8)
[2022-12-04] MEDS ORDERED: Morphine 4 MG/ML VIAL ONE ×2 (02:22→07:03)
[2022-12-04 02:49] LABS: Troponin I Less than 0.010 ng/mL (< 0.028)
[2022-12-04 02:54] LABS: ALT (SGPT) 45 U/L (8-55); AST (SGOT) 42 U/L (5-34); Albumin 4.1 g/dL (3.4-4.8); Alkaline Phosphatase 54 U/L (40-110); Anion Gap 14 mmol/L (10-20); BUN (Urea Nitrogen) 14 mg/dL (8.4-25.7); Bilirubin, Total 2.2 mg/dL (0.2-1.2); Calc. Creatinine Clearance 0 mL/min (70-130); Calcium 9.1 mg/dL (7.8-10.44); Carbon Dioxide 24 mmol/L (23-31); Chloride 97 mmol/L (98-107); Estimated GFR 97; Globulin 2.7 g/dL (2.4-3.5); Glucose 109 mg/dL (80-115); Protein, Total 6.8 g/dL (5.8-8.1); Sodium 131 mmol/L (136-145)
[2022-12-04] MEDS ORDERED: Ondansetron PF 4 MG/2 ML Vial IVP PRN (06:53)
[2022-12-04] MEDS ORDERED: Ipratropium/Albuterol 3 ML NEB NEB PRN (06:53)
[2022-12-04] MEDS ORDERED: Glucagon 1 MG/ML KIT IM PRN (06:53)
[2022-12-04] MEDS ORDERED: Dextrose 5% in Water 1,000 ML IV PRN (06:53)
[2022-12-04] MEDS ORDERED: Dextrose 50% Abboject 50 ML SYRINGE SLOW IVP PRN (06:53)
[2022-12-04] MEDS ORDERED: Ondansetron ODT 4 MG TAB PO PRN (06:53)
[2022-12-04] MEDS ORDERED: hydrALAZINE 20 MG/ML VIAL SLOW IVP PRN (06:53)
[2022-12-04] MEDS ORDERED: Cyclobenzaprine 10 MG TAB PO PRN (06:55)
[2022-12-04] MEDS ORDERED: traMADol HCl 50 MG TAB PO PRN (06:55)
[2022-12-04] MEDS ORDERED: Gabapentin 100 MG CAP PO SCH ×2 (07:00→07:34)
[2022-12-04] MEDS ORDERED: Acetaminophen 500 MG TAB PO SCH (07:00)
[2022-12-04 07:53] LABS: #Monocytes 0.8 thou/uL (0.11-0.59); #Neutrophils 7.9 thou/uL (1.40-6.50); %Basophils 0.3 % (0.0-1.0); %Lymphocytes 39.4 % (21.0-51.0); %Monocytes 5.6 % (0.0-10.0); %Neutrophils 54.2 % (42.0-75.0); Hematocrit 41.6 % (42.0-52.0); Hemoglobin 14.2 g/dL (14.0-18.0); Mean Corpuscular HGB CONC 34.1 g/dL (32.0-36.0); Mean Corpuscular Hemoglobin 29.9 pg (27.0-31.0); Mean Corpuscular Volume 87.6 fl (78.0-98.0); Mean Platelet Volume 9.8 fL (7.4-10.4); Platelet Count 148 10x3/uL (130-400); RBC Distribution Width 13.2 % (11.5-14.5); Red Blood Cell (RBC) Count 4.75 mill/uL (4.70-6.10); White Blood Cell (WBC) Count 14.5 10x3/uL (4.8-10.8)
[2022-12-04 08:05] LABS: INR-International Normal Ratio 1.1; PTT 24.5 sec (22.9-36.1); Prothrombin Time 14.1 sec (12.0-14.7)
[2022-12-04 08:10] LABS: Lactic Acid 1.3 mmol/L (0.5-2.2)
[2022-12-04 08:16] LABS: Anion Gap 16 mmol/L (10-20); BUN (Urea Nitrogen) 14 mg/dL (8.4-25.7); Calc. Creatinine Clearance 0 mL/min (70-130); Calcium 9.5 mg/dL (7.8-10.44); Carbon Dioxide 25 mmol/L (23-31); Chloride 94 mmol/L (98-107); Estimated GFR 98; Glucose 113 mg/dL (80-115); Magnesium 1.4 mg/dL (1.6-2.6); Phosphorus 3.8 mg/dL (2.3-4.7); Potassium 3.9 mmol/L (3.5-5.1); Sodium 131 mmol/L (136-145)
[2022-12-04 08:54] LABS: Manual Diff?? YES
[2022-12-04 09:16] LABS: Band 3 % (5-11); CellaVision Operator ID LAB.KB; Lymphocytes 21 % (21-51); Monocytes 2 % (0-10); Neutrophil 69 % (42-75); Ovalocytes SLIGHT = 2-5 cells HPF (0-1); Platelet Adequacy Comment Platelets Normal; Polychromasia SLIGHT = 2-3 cells HPF (0-2); Reactive Lymphocytes 5 % (0-10); Total Cell Count 100
[2022-12-04] MEDS ORDERED: Iopamidol 370 76% 100 ML VIAL ONE (09:18)
[2022-12-04] MEDS ORDERED: Ketorolac Tromethamine 30 MG/ML VIAL IVP SCH (12:00)
[2022-12-04] MEDS ORDERED: traMADol HCl 50 MG TAB PO SCH (12:00)
[2022-12-04] MEDS ORDERED: Morphine 2 MG/ML VIAL SLOW IVP SCH (12:00)
[2022-12-04] MEDS: traMADol HCl 50 MG TAB PO SCH ×3 (12:26→23:19)
[2022-12-04] MEDS ORDERED: Magnesium Sulfate In Water 4 GM in Premix Bag 1 BAG IVPB SCH (12:30)
[2022-12-04] MEDS: Senokot S 8.6-50 MG TAB PO SCH ×2 (12:34→21:38)
[2022-12-04] MEDS: Polyethylene Glycol 3350 17 GM Packet PO SCH (12:34)
[2022-12-04] MEDS: Morphine 2 MG/ML VIAL SLOW IVP SCH ×5 (12:35→21:38)
[2022-12-04] MEDS: Propranolol HCl 20 MG TAB PO SCH ×3 (12:36→21:36)
[2022-12-04] MEDS: Gabapentin 300 MG CAP PO SCH ×2 (12:45→21:37)
[2022-12-04] MEDS: Acetaminophen 325 MG TAB PO SCH ×3 (12:47→23:19)
[2022-12-04 14:22] LABS: Troponin I Less than 0.010 ng/mL (< 0.028)
[2022-12-04] MEDS: Famotidine 20 MG TAB PO SCH ×2 (14:59→21:38)
[2022-12-04 20:49] VITALS: BMI 22.0
[2022-12-04] MEDS ORDERED: Amlodipine 5 MG TAB PO SCH (21:00)
[2022-12-05] MEDS: Morphine 2 MG/ML VIAL SLOW IVP SCH ×7 (01:51→10:50)
[2022-12-05] MEDS: Acetaminophen 325 MG TAB PO SCH (05:00)
[2022-12-05] MEDS: Gabapentin 300 MG CAP PO SCH (05:01)
[2022-12-05] MEDS: traMADol HCl 50 MG TAB PO SCH (05:01)
[2022-12-05] MEDS: Senokot S 8.6-50 MG TAB PO SCH (08:12)
[2022-12-05] MEDS: Propranolol HCl 20 MG TAB PO SCH (08:12)
[2022-12-05] MEDS: Polyethylene Glycol 3350 17 GM Packet PO SCH (08:12)
[2022-12-05] MEDS: Famotidine 20 MG TAB PO SCH (08:12)
[2022-12-05 08:30] VITALS: BP 162/93; TEMP 97.4
== END 2022-12-05 11:20 | disposition home or self-care (01) ==
LOC: ERS 22:59 → INTOOBSV 12-04 06:53 → ERHOLD 12-04 06:53 → SURG A 12-04 11:46
PROVIDERS: ADMIT Surgery; ATTEND Surgery
DX: I10 Essential (primary) hypertension (principal); K63.89 Other specified diseases of intestine; S22.20XA Unspecified fracture of sternum, initial encounter for closed fracture; Z90.49 Acquired absence of other specified parts of digestive tract; Z79.899 Other long term (current) drug therapy
CPT/HCPCS: 36415; 71045; 71260; 74177; 80053; 83605; 83735; 84100; 84145; 84484; 85025; 85610; 85730; 86850; 86900; 86901; 93005; 96374; 96376; J2270; J2272; J3475; Q9967

== ENCOUNTER 2024-03-08 12:37 | Outpatient (CLI) | payer BC ==
[2024-03-08 14:00] LABS: Bacteria/HPF None Seen HPF (None Seen); Bilirubin Negative (Negative); Blood, Urine Negative (Negative); Clarity Clear (Clear); Glucose, Urine (Dipstick) 30 mg/dL (Negative); Ketone, Urine Negative (Negative); Leukocyte Negative Leu/uL (Negative); Nitrite Negative (Negative); Protein, Urine (Dipstick) 70 mg/dL (Neg-Trace); RBC/HPF None Seen HPF (0-3); Specific Gravity, Urine 1.008 (1.002-1.036); Squamous Epithelial None Seen HPF (0-3); WBC/HPF 0-3 HPF (0-3); pH, Urine 7.5 (5.0-9.0)
[2024-03-08 15:23] LABS: #Basophils 0.05 10x3/uL (0.0-0.2); #Eosinophils Less than 0.03 10x3/uL (0.0-0.7); %Basophils 0.8 % (0.0-1.0); %Eosinophils 0.2 % (0.0-10.0); %Lymphocytes 32.9 % (21.0-51.0); %Monocytes 12.9 % (0.0-10.0); %Neutrophils 52.7 % (42.0-75.0); Hematocrit 38.4 % (42.0-52.0); Hemoglobin 12.9 g/dL (14.0-18.0); Mean Corpuscular HGB CONC 33.6 g/dL (32.0-36.0); Mean Corpuscular Hemoglobin 31.5 pg (27.0-31.0); Mean Corpuscular Volume 93.7 fL (78.0-98.0); Mean Platelet Volume 11.1 fL (7.4-10.4); Platelet Count 129 10x3/uL (130-400); RBC Distribution Width 14.1 % (11.5-14.5)
[2024-03-08 15:33] LABS: INR-International Normal Ratio 1.1; Prothrombin Time 14.6 sec (12.0-14.7)
[2024-03-08 15:34] LABS: PTT 26.6 sec (22.9-36.1)
[2024-03-08 15:38] LABS: Anion Gap 18 mmol/L (10-20); BUN (Urea Nitrogen) 14 mg/dL (8.4-25.7); Calc. Creatinine Clearance 0 mL/min (70-130); Calcium 9.9 mg/dL (7.8-10.44); Carbon Dioxide 27 mmol/L (23-31); Chloride 92 mmol/L (98-107); Estimated GFR 75; Glucose 114 mg/dL (80-115); Sodium 133 mmol/L (136-145)
== END 2024-03-08 12:38 | disposition home or self-care (01) ==
LOC: LABBT 12:37
PROVIDERS: ATTEND Urology
DX: Z01.818 Encounter for other preprocedural examination (principal); N40.1 Benign prostatic hyperplasia with lower urinary tract symptoms; E80.4 Gilbert syndrome; E83.52 Hypercalcemia; G89.29 Other chronic pain; R97.20 Elevated prostate specific antigen [PSA]; R35.0 Frequency of micturition; R39.14 Feeling of incomplete bladder emptying; I10 Essential (primary) hypertension
CPT/HCPCS: 71046; 80048; 81001; 84153; 85025; 85610; 85730; 87086; 93005; 93010

== ENCOUNTER 2024-03-17 06:24 | Day surgery (SDC) | payer BC ==
[2024-03-08 13:03] VITALS: BMI 21.2
[2024-03-17] MEDS ORDERED: cefTRIAXone (ROCEPHIN) 1 GM VIAL ONE (06:57)
[2024-03-17] MEDS ORDERED: Sodium Chloride 0.9% 100 ML ONE (06:57)
[2024-03-17] MEDS ORDERED: LevoFLOXacin D5W 500 mg (100 mL) BAG ONE (07:07)
[2024-03-17] MEDS ORDERED: Rocuronium Bromide 10 MG/ML (10ML VIAL) ONE (07:35)
[2024-03-17] MEDS ORDERED: Lidocaine 2% PF 5 ML VIAL ONE (07:35)
[2024-03-17] MEDS ORDERED: PROPOFOL 20 ML ONE (07:36)
[2024-03-17] MEDS ORDERED: fentaNYL PF 100 MCG/2 ML SYRINGE ONE (07:36)
[2024-03-17] MEDS ORDERED: Propofol 500 MG/50 ML VIAL ONE (07:39)
[2024-03-17] MEDS ORDERED: Ondansetron PF 4 MG/2 ML Vial ONE (07:45)
[2024-03-17] MEDS ORDERED: PHENYLEPHRINE-NS 100 MCG/ML 10 ML SYRINGE ONE (08:16)
[2024-03-17] MEDS ORDERED: HYDROcodone/Acetaminophen 5/325 mg Tablet ONE (10:34)
== END 2024-03-17 11:00 | disposition home or self-care (01) ==
LOC: SDC 06:24
PROVIDERS: ATTEND Urology
PROC: 0VB03ZX Excision of Prostate, Percutaneous Approach, Diagnostic (ICD-10-PCS; principal; 2024-03-17)
DX: C61 Malignant neoplasm of prostate (principal); N40.1 Benign prostatic hyperplasia with lower urinary tract symptoms; R39.14 Feeling of incomplete bladder emptying; R97.20 Elevated prostate specific antigen [PSA]; D41.4 Neoplasm of uncertain behavior of bladder; I48.91 Unspecified atrial fibrillation; I10 Essential (primary) hypertension; G04.90 Encephalitis and encephalomyelitis, unspecified; G62.9 Polyneuropathy, unspecified; G40.909 Epilepsy, unspecified, not intractable, without status epilepticus; E78.5 Hyperlipidemia, unspecified; Z90.49 Acquired absence of other specified parts of digestive tract; Z79.899 Other long term (current) drug therapy
CPT/HCPCS: C1747; G0416; J0696; J1956; J2405; J2704

== ENCOUNTER 2024-04-15 10:12 | Outpatient (CLI) | payer BC | END 2024-04-15 10:13 | disposition home or self-care (01) | LOC: BICCT 10:12 | PROVIDERS: ATTEND Urology | DX: C67.8 Malignant neoplasm of overlapping sites of bladder (principal); K76.0 Fatty (change of) liver, not elsewhere classified; I25.84 Coronary atherosclerosis due to calcified coronary lesion | CPT/HCPCS: 36415; 74178; 82565 ==

== ENCOUNTER 2024-04-21 10:37 | Outpatient (CLI) | payer BC ==
[2024-04-21 12:53] LABS: #Basophils 0.08 10x3/uL (0.0-0.2); %Basophils 1.1 % (0.0-1.0); %Eosinophils 0.6 % (0.0-10.0); %Lymphocytes 30.4 % (21.0-51.0); %Monocytes 7.3 % (0.0-10.0); Hematocrit 40.8 % (42.0-52.0); Hemoglobin 13.1 g/dL (14.0-18.0); Mean Corpuscular HGB CONC 32.1 g/dL (32.0-36.0); Mean Corpuscular Hemoglobin 30.6 pg (27.0-31.0); Mean Corpuscular Volume 95.3 fL (78.0-98.0); Mean Platelet Volume 11.1 fL (7.4-10.4); Platelet Count 136 10x3/uL (130-400); RBC Distribution Width 14.3 % (11.5-14.5); Red Blood Cell (RBC) Count 4.28 mill/uL (4.70-6.10)
[2024-04-21 13:05] LABS: Anion Gap 18 mmol/L (10-20); BUN (Urea Nitrogen) 12 mg/dL (8.4-25.7); Calc. Creatinine Clearance 0 mL/min (70-130); Calcium 9.3 mg/dL (7.8-10.44); Carbon Dioxide 26 mmol/L (23-31); Chloride 99 mmol/L (98-107); Estimated GFR 96; Glucose 92 mg/dL (80-115); Potassium 3.5 mmol/L (3.5-5.1); Sodium 139 mmol/L (136-145)
[2024-04-21 13:26] LABS: Bacteria/HPF None Seen HPF (None Seen); Bilirubin Negative (Negative); Blood, Urine Negative (Negative); Clarity Clear (Clear); Glucose, Urine (Dipstick) Normal (Negative); Ketone, Urine Negative (Negative); Leukocyte Negative Leu/uL (Negative); Nitrite Negative (Negative); Protein, Urine (Dipstick) 50 mg/dL (Neg-Trace); RBC/HPF 0-3 HPF (0-3); Specific Gravity, Urine 1.013 (1.002-1.036); Squamous Epithelial None Seen HPF (0-3); Urobilinogen Normal mg/dL (Less than 2); WBC/HPF 0-3 HPF (0-3)
== END 2024-04-21 10:38 | disposition home or self-care (01) ==
LOC: LABBT 10:37
PROVIDERS: ATTEND Urology
DX: Z01.818 Encounter for other preprocedural examination (principal); C61 Malignant neoplasm of prostate; C67.8 Malignant neoplasm of overlapping sites of bladder; I10 Essential (primary) hypertension; I48.91 Unspecified atrial fibrillation; R97.20 Elevated prostate specific antigen [PSA]; E80.4 Gilbert syndrome; E83.52 Hypercalcemia; G89.29 Other chronic pain; R35.0 Frequency of micturition; R39.14 Feeling of incomplete bladder emptying; N40.1 Benign prostatic hyperplasia with lower urinary tract symptoms; R25.1 Tremor, unspecified; A92.31 West Nile virus infection with encephalitis
CPT/HCPCS: 80048; 81001; 85025; 86850; 86900; 86901; 87086; 93005; 93010

== ENCOUNTER 2025-01-27 12:30 | Outpatient (CLI) | payer BC, MEDICARE | END 2025-01-27 12:31 | disposition home or self-care (01) | LOC: PET 12:30 | PROVIDERS: ATTEND Urology | DX: C67.8 Malignant neoplasm of overlapping sites of bladder (principal) | CPT/HCPCS: 78815; A9595-JZ ==